=== PATIENT | female | born 1980 | race Caucasian/White ===

== ENCOUNTER → 2017-01-22 | Outpatient (REF) | payer OTHER ==
[~2017-01-22] MED LIST: /ESCI20TA PO; ABIL2TAB PO; CELE40TA PO; PARO10TA10 PO; PRAZ1CAP PO; SUBO8TA PO; SUBO8TA SL; SYNT50TA PO; XANA1TAB2 PO; ZOCO20TA PO
[2017-01-22 19:31] LABS: BASO # 0.1 10^3/uL (0.0-0.2); BASO % 0.5 % (0.0-1.0); EOS # 0.2 10^3/uL (0.0-0.50); EOS % 2.1 % (0.0-3.0); IMMATURE GRANULOCYTE % 0.4 % (0-0); LYMPH % 30.2 % (24.0-44.0); MEAN CORPUSCULAR HEMOGLOBIN 29.7 pg (27.0-33.0); MEAN CORPUSCULAR HGB CONC 33.2 g/dl (32.0-36.5); MEAN CORPUSCULAR VOLUME 89.4 fl (80.0-96.0); MONO # 0.5 10^3/uL (0.0-0.8); MONO % 5.2 % (0.0-5.0); NEUTROPHILS # 6.2 10^3/uL (1.8-7.7); NEUTROPHILS % 61.6 % (36.0-66.0); PLATELET COUNT, AUTOMATED 328 10^3/uL (150-450); RED CELL DISTRIBUTION WIDTH 12.1 % (11.5-14.5); WHITE BLOOD COUNT 10.1 10^3/uL (4.0-10.0)
[2017-01-22 20:43] LABS: ALBUMIN/GLOBULIN RATIO 1.03 (1.00-1.93); ALKALINE PHOSPHATASE 98 U/L (45-117); ALT/SGPT 33 U/L (12-78); ANION GAP 5 MEQ/L (8-16); AST/SGOT 31 U/L (15-37); BILIRUBIN,TOTAL 0.3 MG/DL (0.2-1.0); BLOOD UREA NITROGEN 13 MG/DL (7-18); CALCIUM LEVEL 9.4 MG/DL (8.5-10.1); CARBON DIOXIDE LEVEL 30 MEQ/L (21-32); CHLORIDE LEVEL 102 MEQ/L (98-107); GLOMERULAR FILTRATION RATE > 60.0 (>60); GLUCOSE, FASTING 98 MG/DL (70-105); POTASSIUM SERUM 4.9 MEQ/L (3.5-5.1); SODIUM LEVEL 137 MEQ/L (136-145); TOTAL PROTEIN 7.9 GM/DL (6.4-8.2)
[2017-01-27 00:07] LABS: ALT 28 IU/L (0-40); GGT 15 IU/L (0-60); HAPTOGLOBIN 182 mg/dL (34-200); HEPATITIS C QUANTITATION 8193940 IU/mL (.); HEPATITIS C VIRUS GENOTYPE 1a (.); NECROINFLAMM GRADE A0-No activity (.); TOTAL BILIRUBIN 0.2 mg/dL (0.0-1.2)
== END ==
LOC: M SFHCPLAZ 14:06
PROVIDERS: ATTEND Internal Medicine Infectious Disease
DX: B18.2 Chronic viral hepatitis C (principal)

== ENCOUNTER → 2017-03-01 | Outpatient (REF) | payer OTHER ==
[2017-03-01 14:01] LABS: ALBUMIN 4.1 GM/DL (3.2-5.2); ALBUMIN/GLOBULIN RATIO 1.11 (1.00-1.93); BILIRUBIN,DIRECT 0.1 MG/DL (0.0-0.2); BILIRUBIN,TOTAL 0.5 MG/DL (0.2-1.0); TOTAL PROTEIN 7.8 GM/DL (6.4-8.2)
[2017-03-05 10:08] LABS: HEPATITIS C QUANTITATION 70 IU/mL (.)
== END ==
LOC: M SFHCPLAZ 12:08
PROVIDERS: ATTEND Internal Medicine Infectious Disease
DX: B18.2 Chronic viral hepatitis C (principal)

== ENCOUNTER 2017-03-26 21:05 | Emergency (ER) | payer OTHER ==
[~2017-03-26] VITALS: Ht 154.9 cm; Wt 81.8 kg
[2017-03-26] MEDS ORDERED: BUSP1TAB PO (21:39)
[2017-03-26] MEDS ORDERED: CLON0.2T PO (21:39)
[2017-03-26] MEDS ORDERED: LAMO100T PO (21:39)
[2017-03-26] MEDS ORDERED: PROZ20CA11 PO (21:39)
[2017-03-26] MEDS ORDERED: MAVY1TAB PO (21:40)
[2017-03-26] MEDS ORDERED: SUBO12MI SL (21:40)
[2017-03-27 03:11] VITALS: BP 139/76
[2017-03-27] MEDS ORDERED: AMOXICILLIN 500 MG CAP PO ONE (03:45)
[2017-03-27] MEDS ORDERED: AMOX500C PO (03:48)
== END 2017-03-27 04:20 | disposition home or self-care (01) ==
LOC: M ED 21:05
DX: J02.9 Acute pharyngitis, unspecified (principal); F41.9 Anxiety disorder, unspecified; F33.9 Major depressive disorder, recurrent, unspecified; F17.210 Nicotine dependence, cigarettes, uncomplicated

== ENCOUNTER → 2017-04-24 | Outpatient (REF) | payer OTHER ==
[2017-04-24 14:49] LABS: ALBUMIN 3.9 GM/DL (3.2-5.2); ALBUMIN/GLOBULIN RATIO 1.26 (1.00-1.93); ALKALINE PHOSPHATASE 77 U/L (45-117); ALT/SGPT 19 U/L (12-78); AST/SGOT 20 U/L (7-37); BILIRUBIN,DIRECT 0.1 MG/DL (0.0-0.2); BILIRUBIN,TOTAL 0.3 MG/DL (0.2-1.0)
[2017-04-29 00:09] LABS: HEPATITIS C QUANTITATION HCV Not Detected IU/mL (.)
== END ==
LOC: M LABDRAW1 13:17
DX: B18.2 Chronic viral hepatitis C (principal)
CPT/HCPCS: 36415

== ENCOUNTER → 2017-05-02 | Outpatient (REF) | payer OTHER ==
[2017-05-05 00:09] LABS: AMPHETAMINE SCREEN, URINE Negative ng/mL (Cutoff=1000); BARBITURATES SCREEN, URINE Negative ng/mL (Cutoff=200); BENZODIAZEPINES, URINE SCREEN Negative ng/mL (Cutoff=200); CANNABINOID SCREEN, URINE Negative ng/mL (Cutoff=20); COCAINE SCREEN, URINE Negative ng/mL (Cutoff=300); CREATININE, URINE 72.1 mg/dL (20.0-300.0); FENTANYL URINE SCREEN Negative pg/mL (Cutoff=2000); METHADONE, URINE SCREEN Negative ng/mL (Cutoff=300); OPIATE SCREEN, URINE Negative ng/mL (Cutoff=300); OXYCODONE, SCREEN, URINE Negative ng/mL (Cutoff=100); PCP SCREEN, URINE Negative ng/mL (Cutoff=25); SPECIFIC GRAVITY, URINE 1.024 (.); pH, URINE 6.6 (4.5-8.9)
== END ==
LOC: M LAB REF 05-03 12:23
DX: F19.11 Other psychoactive substance abuse, in remission (principal)
CPT/HCPCS: 80307

== ENCOUNTER → 2017-05-16 | Outpatient (REF) | payer OTHER, MEDICAID ==
[2017-05-24 08:06] LABS: AMPHETAMINE SCREEN, URINE Negative ng/mL (Cutoff=1000); BARBITURATES SCREEN, URINE Negative ng/mL (Cutoff=200); BENZODIAZEPINES, URINE SCREEN Negative ng/mL (Cutoff=200); CANNABINOID SCREEN, URINE Negative ng/mL (Cutoff=20); COCAINE SCREEN, URINE Negative ng/mL (Cutoff=300); CREATININE, URINE 154.3 mg/dL (20.0-300.0); FENTANYL URINE SCREEN Negative pg/mL (Cutoff=2000); METHADONE, URINE SCREEN Negative ng/mL (Cutoff=300); NALOXONE RESULT Positive (.); OPIATE SCREEN, URINE Negative ng/mL (Cutoff=300); OXYCODONE, SCREEN, URINE Negative ng/mL (Cutoff=100); PCP SCREEN, URINE Negative ng/mL (Cutoff=25); SPECIFIC GRAVITY, URINE 1.022 (.); URINE BUPRENORPHINE Positive (.); URINE BUPRENORPHINE Positive (Cutoff=10); URINE BUPRENORPHINE See Final Results ng/mL (Cutoff=10); URINE BUPRENORPHINE CONFIRM 842 ng/mL (Cutoff=10); URINE NORBUPRENORPHINE Positive (.); URINE NORBUPRENORPHINE CONFIRM >1000 ng/mL (Cutoff=10); pH, URINE 5.8 (4.5-8.9)
== END ==
LOC: M LAB REF 19:37
DX: F19.11 Other psychoactive substance abuse, in remission (principal)
CPT/HCPCS: 80362

== ENCOUNTER → 2017-06-06 | Outpatient (REF) | payer OTHER, MEDICAID | LOC: M LAB REF 19:21 | DX: F19.11 Other psychoactive substance abuse, in remission (principal) ==

== ENCOUNTER → 2017-06-12 | Outpatient (REF) | payer OTHER, MEDICAID | LOC: M LAB REF 17:03 | DX: F19.11 Other psychoactive substance abuse, in remission (principal) | CPT/HCPCS: 80362 ==

== ENCOUNTER → 2017-06-20 | Outpatient (REF) | payer OTHER, MEDICAID | LOC: M LAB REF 13:57 | DX: F19.11 Other psychoactive substance abuse, in remission (principal) ==

== ENCOUNTER → 2017-06-20 | Outpatient (CLI) | payer OTHER | LOC: M RAD 16:49 | DX: M54.2 Cervicalgia (principal); M47.812 Spondylosis without myelopathy or radiculopathy, cervical region | CPT/HCPCS: 72040 ==

== ENCOUNTER → 2017-07-04 | Outpatient (REF) | payer OTHER ==
[2017-07-04 17:52] LABS: ALBUMIN 3.8 GM/DL (3.2-5.2); ALBUMIN/GLOBULIN RATIO 1.15 (1.00-1.93); ALKALINE PHOSPHATASE 75 U/L (45-117); ALT/SGPT 13 U/L (12-78); ANION GAP 6 MEQ/L (8-16); AST/SGOT 15 U/L (7-37); BILIRUBIN,TOTAL 0.4 MG/DL (0.2-1.0); BLOOD UREA NITROGEN 9 MG/DL (7-18); CALCIUM LEVEL 8.7 MG/DL (8.5-10.1); CARBON DIOXIDE LEVEL 31 MEQ/L (21-32); CHLORIDE LEVEL 103 MEQ/L (98-107); CREATININE FOR GFR 0.71 MG/DL (0.55-1.30); GLOMERULAR FILTRATION RATE > 60.0 (>60); GLUCOSE, FASTING 112 MG/DL (70-100); POTASSIUM SERUM 4.3 MEQ/L (3.5-5.1); SODIUM LEVEL 140 MEQ/L (136-145); TOTAL PROTEIN 7.1 GM/DL (6.4-8.2)
[2017-07-04 18:20] LABS: BASO # 0.1 10^3/uL (0.0-0.2); BASO % 0.4 % (0.0-1.0); EOS # 0.5 10^3/uL (0.0-0.50); EOS % 4.7 % (0.0-3.0); HEMATOCRIT 40.6 % (36.0-47.0); HEMOGLOBIN 13.4 g/dl (12.0-16.0); IMMATURE GRANULOCYTE % 0.3 % (0-3.0); LYMPH # 3.6 10^3/uL (1.5-4.5); LYMPH % 31.5 % (24.0-44.0); MEAN CORPUSCULAR HEMOGLOBIN 29.7 pg (27.0-33.0); MONO # 0.7 10^3/uL (0.0-0.8); MONO % 5.9 % (0.0-5.0); NEUTROPHILS # 6.5 10^3/uL (1.8-7.7); NEUTROPHILS % 57.2 % (36.0-66.0); PLATELET COUNT, AUTOMATED 303 10^3/uL (150-450); RED BLOOD COUNT 4.51 10^6/uL (4.00-5.40); RED CELL DISTRIBUTION WIDTH 12.8 % (11.5-14.5); WHITE BLOOD COUNT 11.4 10^3/uL (4.0-10.0)
== END ==
LOC: M SFHCPLAZ 11:07
DX: B18.2 Chronic viral hepatitis C (principal)

== ENCOUNTER → 2017-07-11 | Outpatient (REF) | payer OTHER, MEDICAID | LOC: M LAB REF 11:38 | DX: F19.11 Other psychoactive substance abuse, in remission (principal) ==

== ENCOUNTER 2017-07-12 15:54 | Emergency (ER) | payer OTHER, MEDICAID | END 2017-07-12 19:41 | disposition home or self-care (01) | LOC: M ED 15:54 | DX: M50.20 Other cervical disc displacement, unspecified cervical region (principal); R42 Dizziness and giddiness; V43.52XA Car driver injured in collision with other type car in traffic accident, initial encounter; Y92.410 Unspecified street and highway as the place of occurrence of the external cause | CPT/HCPCS: 70450 ==

== ENCOUNTER → 2017-07-19 | Outpatient (REF) | payer OTHER, MEDICAID | LOC: M LAB REF 17:13 | DX: F19.11 Other psychoactive substance abuse, in remission (principal) ==

== ENCOUNTER → 2017-08-08 | Outpatient (REF) | payer OTHER, MEDICAID | LOC: M LAB REF 11:20 | DX: F19.11 Other psychoactive substance abuse, in remission (principal) | CPT/HCPCS: 80362 ==

== ENCOUNTER → 2017-08-22 | Outpatient (REF) | payer OTHER, MEDICAID | LOC: M LAB REF 17:36 | DX: F19.11 Other psychoactive substance abuse, in remission (principal) ==

== ENCOUNTER 2017-08-28 13:55 | Outpatient (RCR) | payer OTHER | END 2017-09-20 | LOC: M PT 13:55 | DX: Z51.89 Encounter for other specified aftercare (principal); M54.2 Cervicalgia | CPT/HCPCS: 97010 ==

== ENCOUNTER → 2017-09-12 | Outpatient (REF) | payer OTHER, MEDICAID ==
[2017-09-21 03:02] LABS: AMPHETAMINE SCREEN, URINE Negative ng/mL (Cutoff=1000); BARBITURATES SCREEN, URINE Negative ng/mL (Cutoff=200); BENZODIAZEPINES, URINE SCREEN Negative ng/mL (Cutoff=200); CANNABINOID SCREEN, URINE Negative ng/mL (Cutoff=20); COCAINE SCREEN, URINE Negative ng/mL (Cutoff=300); FENTANYL URINE SCREEN Negative pg/mL (Cutoff=2000); METHADONE, URINE SCREEN Negative ng/mL (Cutoff=300); NALOXONE RESULT Positive (.); OPIATE SCREEN, URINE Negative ng/mL (Cutoff=300); OXYCODONE, SCREEN, URINE Negative ng/mL (Cutoff=100); PCP SCREEN, URINE Negative ng/mL (Cutoff=25); SPECIFIC GRAVITY, URINE 1.026 (.); URINE BUPRENORPHINE Positive (.); URINE BUPRENORPHINE Positive (Cutoff=10); URINE BUPRENORPHINE See Final Results ng/mL (Cutoff=10); URINE BUPRENORPHINE CONFIRM 1062 ng/mL (Cutoff=10); URINE NORBUPRENORPHINE Positive (.); URINE NORBUPRENORPHINE CONFIRM >1000 ng/mL (Cutoff=10); pH, URINE 6.2 (4.5-8.9)
== END ==
LOC: M LAB REF 09:18
DX: F19.11 Other psychoactive substance abuse, in remission (principal)

== ENCOUNTER 2017-09-25 13:11 | Outpatient (RCR) | payer OTHER | END 2017-10-20 | LOC: M PT 13:11 | DX: Z51.89 Encounter for other specified aftercare (principal); M54.2 Cervicalgia | CPT/HCPCS: 97010 ==

== ENCOUNTER 2017-11-07 13:47 | Outpatient (RCR) | payer OTHER | END 2017-11-20 | LOC: M PT 13:47 | DX: Z51.89 Encounter for other specified aftercare (principal); M54.2 Cervicalgia | CPT/HCPCS: 97010 ==

== ENCOUNTER 2017-11-22 13:50 | Outpatient (RCR) | payer OTHER | END 2017-12-21 | LOC: M PT 12-04 15:06 | DX: Z51.89 Encounter for other specified aftercare (principal); M54.2 Cervicalgia | CPT/HCPCS: 97010 ==

== ENCOUNTER 2017-12-27 13:08 | Outpatient (RCR) | payer OTHER | END 2018-01-20 | LOC: M PT 13:08 | DX: Z51.89 Encounter for other specified aftercare (principal); M54.2 Cervicalgia | CPT/HCPCS: 97010 ==

== ENCOUNTER → 2018-06-26 | Outpatient (REF) | payer OTHER ==
[~2018-06-26] MED LIST changes: +AMOX500C PO; +BUSP15TA47; +BUSP1TAB PO; +CLON0.2T PO; +CLON0.3T; +CYCL10TA PO; +FLUOXETINE; +LAMO100T PO; +MAVY1TAB PO; +PROZ20CA11 PO; +SUBO12MI SL; +SUBO8MIS
[2018-06-26 21:01] LABS: ALT/SGPT 28 U/L (12-78); BILIRUBIN,TOTAL 0.4 MG/DL (0.2-1.0); BLOOD UREA NITROGEN 15 MG/DL (7-18); CALCIUM LEVEL 8.4 MG/DL (8.5-10.1); CARBON DIOXIDE LEVEL 27 MEQ/L (21-32); CHLORIDE LEVEL 105 MEQ/L (98-107); CREATININE FOR GFR 0.69 MG/DL (0.55-1.30); GLOMERULAR FILTRATION RATE > 60.0 (>60); GLUCOSE, FASTING 99 MG/DL (70-100); POTASSIUM SERUM 3.7 MEQ/L (3.5-5.1); SODIUM LEVEL 140 MEQ/L (136-145); TOTAL PROTEIN 7.1 GM/DL (6.4-8.2)
[2018-06-26 21:21] LABS: HIV 1&2 SCREEN CENTAUR NEGATIVE (NEGATIVE)
== END ==
LOC: M LAB REF 18:33
PROVIDERS: ATTEND Nurse Practitioner Adult Health
DX: F11.21 Opioid dependence, in remission (principal)

== ENCOUNTER 2020-04-10 12:09 | Emergency (ER) | payer OTHER ==
[~2020-04-10 12:09] MED LIST changes: -/ESCI20TA PO; +CYCL-707 PO; -CYCL10TA PO; -LAMO100T PO; +LAMO100T3 PO; +LEXA1TAB2 PO
[2020-04-10] MEDS ORDERED: OLANZapine ORAL DISINTEGRATING TAB 5MG PO ONE (13:00)
[2020-04-10 13:36] LABS: HEMATOCRIT 32.5 % (36.0-47.0); HEMOGLOBIN 10.3 g/dl (12.0-15.5); MEAN CORPUSCULAR HEMOGLOBIN 26.4 pg (27.0-33.0); MEAN CORPUSCULAR HGB CONC 31.7 g/dl (32.0-36.5); MEAN CORPUSCULAR VOLUME 83.3 fl (80.0-96.0); PLATELET COUNT, AUTOMATED 370 10^3/uL (150-450); WHITE BLOOD COUNT 10.5 10^3/uL (4.0-10.0)
[2020-04-10 13:57] LABS: ACETAMINOPHEN LEVEL < 2.0 UG/ML (10.0-30.0); ALBUMIN 3.8 GM/DL (3.2-5.2); ALT/SGPT 31 U/L (12-78); BILIRUBIN,DIRECT < 0.1 MG/DL (0.0-0.2); BILIRUBIN,TOTAL 0.2 MG/DL (0.2-1.0); BLOOD UREA NITROGEN 12 MG/DL (7-18); CALCIUM LEVEL 8.3 MG/DL (8.5-10.1); CARBON DIOXIDE LEVEL 29 MEQ/L (21-32); CHLORIDE LEVEL 103 MEQ/L (98-107); CREATININE FOR GFR 0.76 MG/DL (0.55-1.30); ETHYL ALCOHOL (ETHANOL) 0.003 % (0.000-0.010); GLOMERULAR FILTRATION RATE > 60.0 (>60); GLUCOSE, FASTING 87 MG/DL (70-100); POTASSIUM SERUM 4.1 MEQ/L (3.5-5.1); SALICYLATE LEVEL < 1.7 MG/DL (5.0-30.0); SODIUM LEVEL 138 MEQ/L (136-145); TOTAL PROTEIN 7.7 GM/DL (6.4-8.2)
[2020-04-10 14:47] LABS: HCG, SERUM QUALITATIVE NEGATIVE (NEGATIVE)
[2020-04-10] MEDS ORDERED: LORazepam 2 MG TAB PO STA (15:03)
[2020-04-10 16:27] LABS: AMPHETAMINES LEVEL URINE NEGATIVE (NEGATIVE); BARBITURATES URINE NEGATIVE (NEGATIVE); BENZODIAZEPINES URINE NEGATIVE (NEGATIVE); CANNABINOIDS URINE NEGATIVE (NEGATIVE); COCAINE METABOLITE URINE NEGATIVE (NEGATIVE); METHADONE URINE NEGATIVE (NEGATIVE); OPIATES URINE NEGATIVE (NEGATIVE); PHENCYCLIDINE URINE NEGATIVE (NEGATIVE)
[2020-04-10] MEDS ORDERED: ACETAMINOPHEN TAB 650MG DOSE (2X325MG) PO ONE (22:45)
[2020-04-11 03:09] LABS: APPEARANCE, URINE CLEAR (CLEAR); BACTERIA, URINE AUTO NEGATIVE (NEGATIVE); BILIRUBIN, URINE AUTO NEGATIVE (NEGATIVE); BLOOD, URINE BLOOD 1+ (NEGATIVE); COLOR, URINE YELLOW (YELLOW); GLUCOSE, URINE (UA) AUTO NEGATIVE (NEGATIVE); KETONE, URINE AUTO NEGATIVE (NEGATIVE); LEUKOCYTE ESTERASE, URINE AUTO TRACE (NEGATIVE); MUCUS, URINE SMALL (NEGATIVE); NITRITE, URINE AUTO NEGATIVE (NEGATIVE); PROTEIN, URINE AUTO NEGATIVE (NEGATIVE); RBC, URINE AUTO 2 /HPF (0-3); SPECIFIC GRAVITY URINE AUTO 1.011 (1.002-1.035); SQUAMOUS EPITHELIAL CELL UR AU 7 /HPF (0-6); UROBILINOGEN, URINE AUTO 0.2 mg/dL (0.0-2.0); WBC, URINE AUTO 1 /HPF (0-3)
[2020-04-11 03:29] LABS: AMPHETAMINES LEVEL URINE POSITIVE (NEGATIVE); BARBITURATES URINE NEGATIVE (NEGATIVE); BENZODIAZEPINES URINE NEGATIVE (NEGATIVE); CANNABINOIDS URINE POSITIVE (NEGATIVE); COCAINE METABOLITE URINE NEGATIVE (NEGATIVE); METHADONE URINE NEGATIVE (NEGATIVE); OPIATES URINE NEGATIVE (NEGATIVE); PHENCYCLIDINE URINE NEGATIVE (NEGATIVE)
[2020-04-11] MEDS ORDERED: METAL LOCK LOOP XX ONE (04:31)
--- NOTE | 2020-04-11 12:28 | ECGEPIP ---
[facility] - ED Test Date: 2020-04-11 Pat Name: RIGOBERTO KNIGHT Department: Room: - Gender: Female Sock Turner: meredith : 1980 Requested By: FERMIN Marie Order Number: [id number] Reading MD: Edda Tyson Measurements Intervals [place] Rate: 67 P: 7 WV: 154 QRS: 52 QRSD: 85 T: 44 QT: 385 QTc: 409 Interpretive Statements SINUS RHYTHM No prior Electronically Signed on 04-11-2020 12:28:30 EST by Edda Tyson
[2020-04-11 13:46] LABS: RSV AMPLIFICATION NEGATIVE (NEGATIVE)
[2020-04-11 19:37] VITALS: BP 134/61
== END 2020-04-11 19:39 ==
LOC: M ED 12:09
DX: R45.851 Suicidal ideations (principal); F33.9 Major depressive disorder, recurrent, unspecified; F15.129 Other stimulant abuse with intoxication, unspecified; F41.9 Anxiety disorder, unspecified; B19.20 Unspecified viral hepatitis C without hepatic coma; Z79.899 Other long term (current) drug therapy; F17.210 Nicotine dependence, cigarettes, uncomplicated
CPT/HCPCS: 36415; 80048; 80076; 80307; 81001; 84443; 84703; 85027; 87631; 93005; 99285; G0480

== ENCOUNTER 2020-08-10 00:04 | Emergency (ER) | payer OTHER ==
[~2020-08-10] VITALS: Ht 157.5 cm; Wt 50.3 kg
[2020-08-10 00:05] VITALS: BP 150/93
== END 2020-08-10 00:38 | disposition left against medical advice (07) ==
LOC: M ED 00:04
DX: Z53.21 Procedure and treatment not carried out due to patient leaving prior to being seen by health care provider (principal)

== ENCOUNTER 2020-11-25 07:19 | Emergency (ER) | payer OTHER ==
[~2020-11-25] VITALS: Ht 157.5 cm; Wt 53.5 kg
[2020-11-25] MEDS ORDERED: BUPR1FIL (07:26)
[2020-11-25] MEDS ORDERED: DOXY-443 PO (11:23)
[2020-11-25] MEDS ORDERED: NEOM10DR2 OT (11:23)
[2020-11-25 11:27] VITALS: BP 147/75
== END 2020-11-25 11:33 | disposition home or self-care (01) ==
LOC: M ED 07:19
DX: H60.91 Unspecified otitis externa, right ear (principal); L73.9 Follicular disorder, unspecified; F15.10 Other stimulant abuse, uncomplicated; Z98.84 Bariatric surgery status; Z79.899 Other long term (current) drug therapy; F17.210 Nicotine dependence, cigarettes, uncomplicated

== ENCOUNTER 2021-01-29 00:07 | Emergency (ER) | payer OTHER ==
[~2021-01-29] VITALS: Ht 154.9 cm; Wt 51.5 kg
[2021-01-29 00:07] VITALS: BP 140/89
[~2021-01-29 00:07] MED LIST changes: +BUPR1FIL; +DOXY1CAP62 PO; +NEOM10DR2 OT
== END 2021-01-29 00:27 | disposition left against medical advice (07) ==
LOC: M ED 00:07
DX: Z53.29 Procedure and treatment not carried out because of patient's decision for other reasons (principal)

== ENCOUNTER 2021-02-02 19:20 | Emergency (ER) | payer OTHER ==
[~2021-02-02] VITALS: Ht 154.9 cm; Wt 54.5 kg
--- OUTSIDE RECORDS SUMMARY | 2021-02-02 19:31 | CCD ---
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 CESSATION* Smoking is dangerous to your health. It delays the healing process, andworks against your medications. Not smoking will improve your health* Our hospital participates with the Opt-to-Quit program. You will be contactedafter discharge by the [facility] Smoker's Quitline for support with tobaccocessation. You have the option once contacted to refuse this service.* You can also go online to www.[employer]. Free nicotine replacementsare available ___Attention* You should contact your follow up Physician as it is important that you lethim or her check you and report any new or remaining problems. If yourcondition worsens, follow up with your provider or visit our EmergencyDepartment. If you received pain medication, anxiety medications, musclerelaxants, or any medication that causes drowsiness, you cannot operatemachinery, power tools, or drive.Safe ActSafe Act Completed NoiStopiStop completed NoEND ENDDICT: 04/05/20918 Electronically SignedTRANS:04/05/20918 MORRO HARDY MDTRANS BY:DATE SIGNED:04/05/20TIME SIGNED: 0920REPORT COPY TO: Name Value Range Interpretation Code Description Data Nuha rce(s) Supporting Document(s) ID Date Data Source [id number] 04/03/2020 11:24:00 AM [facility] [place], [place] [address]IOQUMX HEALTH PROGRESS NOTEPATIENT NAME: RIGOBERTO ATKINS PHYSICIAN: MORRO HARDY, MDAUTHOR: Mona MURPHY,DhruvA. DATE: 03/31/20 MR#: [id number] NOTE DATE: 04/03/20 RM#: [id number] TIME: 1126 female, past psych history of polysubstance abuseCC/Hx Present IllnessDisorganized behaviorEvents Since Last EntryDuring this course of assessment, patient refused to come for evaluation,patient was seen in the day room, she was laying down on a sofa bed, expressedthat she has been withdrawing from Suboxone as she was taking it significantamount outside and her body has been aching and she feels very overwhelmed aswell. She was also asking for some withdrawals medication as well. Deniedhaving any current suicidal, homicidal ideation and expressed to maintain hersafety.Mental status examination: Patient was alert, oriented with a place, person,appeared distracted, somewhat overwhelmed, her speech remained somewhatpressured rapid, mood was anxious, affect was elevated, thought process wassomewhat circumstantial, thought content denied having any suicidal, homicidalideations, denied having any auditory visual hallucinations, denied delusions,attention concentration poor, insight and judgment appeared limitedDiagnosis: Psychosis unspecified, substance-induced psychotic disorderPlan: Consider to continue current treatment plan, we added Flexeril as well asclonidine medication to help with opioid withdrawals at this point as well.Also recommended substance use treatment for down the road as well. No othermedical issues reported.ObjectiveVital SignsVital Signs-LastResult Date Ti meTemp 97.7 04/03 0740Pulse Ox 99 04/02 1100B/P 114/79 04/02 1100Pulse 93 04/02 1100Resp 18 12/11 1100Current MedicationsCyclobenzaprine HCl (Flexeril) 5 MG TIDPRN PRN PO (UNVr)Clonidine (Catapres) 0.1 MG BID PO (UNVr)Citalopram Hydrobromide (Celexa) 20 MG QHS POMiscellaneous (Patch off) 1 PAT QHS NATrimethoprim/Sulfamethoxazole (Septra DS) 1 TAB BID PONicotine (Nicoderm) 21 MG DAILY TOPMiscellaneous Read DDIC66P NAAcetaminophen (Tylenol) 650 MG Q4HPRN PRN POAcetaminophen (Tylenol) 650 MG Q4HPRN PRN POAl Hydrox/Mg Hydrox/Simethicone (Maalox) 15 ML QIDPRN PRN POHydroxyzine (Atarax) 50 MG Q4HPRN PRN POMagnesium Hydroxide (Mom) 10 ML QHSPRN PRN POTrazodone HCl (Desyrel) 50 MG QHSPRN PRN POAssessment/PlanDiagnosis1. PsychosisCoordination of care provided with nursing staff, treatment teamRisk/benefits discussed side effectsJustification for continued stay danger to self/othersDATE SIGNED: 04/03/20 Electronically SignedTIME SIGNED: 1126 LYRIC BANKS MD Name Value Range Interpretation Code Description Data Nuha rce(s) Supporting Document(s) ID Date Data Source [id number] 04/03/2020 12:14:00 AM [place], [place] [address]PATIENT NAME: RIGOBERTO ATKINS#: [id number] PHYSICIAN: MORRO HARDY MD ADM. DATE: 03/31/20PROGRESS NOTE DATE: 04/02/20 RM.#: [id number] #: [id number] NOTEIDENTIFICATION: A 39-year-old female with schizoaffective disorder andpolysubstance dependence.VITAL SIGNS: Temperature of 98.2, pulse of 93, respirations 15, bloodpressure 126/89.LABORATORY DATA: Hepatitis C positive. The patient stated that she had thisdiagnosis for the last 3 years.SUBJECTIVE: The patient came to the interview room. She cannot explain whyyesterday she did not come to talk to us, why she was so upset. The patientstated that she does not want to stay here in the hospital, but she cannotexplain the real situation outside. The patient cannot explain what she wasdoing in the middle of the field at the time of admission. She stated that shewas thinking about life, but she cannot explain what she meant by that.MENTAL STATUS EXAMINATION: The patient is confused, but improved fromyesterday. Denies any suicidal or homicidal ideations, but she cannot takecare of herself. Judgment and insight are questionable. Reality testing iscompromised. Decision making capacity is compromised.DIAGNOSES: Schizoaffective disorder.PLAN: At this point, the patient will be back on the Celexa that will beincreased slowly in the next few days. The use of neuroleptic is halted forthe time being suspicious that this is related to the use of substance that isstill present. We will also keep an eye on the withdrawals.Date Dictated: 04/02/2020 10:20:11Date Transcribed: 04/02/2020 23:14:23JV/GBJob #: [id number]: 04/02/20 1020 Electronically SignedTRANS:04/03/20 0014 MORRO HARDY MDTRANS BY:COLLETTE SIGNED:04/05/20REPORT COPY TO: Name Value Range Interpretation Code Description Data Nuha rce(s) Supporting Document(s) ID Date Data Source [id number] 04/01/2020 11:34:[address] [id number] NAME: RIGOBERTO ATKINS#: [id number] PHYSICIAN: MORRO HARDY MD ADM. DATE: 03/31/20PROGRESS NOTE DATE: 04/01/20 .#: 316ACCOUNT #: [id number] NOTEIDENTIFICATION: A 39-year-old female with mood disorder, depression, andpolysubstance dependence.VITAL SIGNS: Temperature of 98, pulse of 87, respirations 16, blood urfywgwp275/70.SUBJECTIVE: The patient declined the interview. She is in the dining room.She seems to be disorganized, but did not want to answer any questions. It isnot clear the reason why she does not want to have the interview. The patientknows that we talked with her family that they have concern about the poorimpulse control and the use of substance. We are trying to discuss with thepatient the fact that the police found her not in the road sitting in her caras she told us yesterday, but in the middle of the field. She did not knowwhere she was. At this point, the patient does not want to answer anyquestions.MENTAL STATUS EXAMINATION: Patient is uncooperative. Declines the interview.Denies any other problems. Judgment and insight are poor. Reality testingseems to be compromised. Decision making capacity is compromised. Cognitivepart of the test unable to explore.PLAN: At this point, it is not clear the patient has just a mood disorderwith depression or psychosis. We will start an SSRI and if we have any signsof psychosis, we will add a neuroleptic, but at this point, we will start withan SSRI first.Date Dic tated: 04/01/2020 11:00:29Date Transcribed: 04/01/2020 22:34:09JV/GBJob #: [id number]: 04/01/20 1100 Electronically SignedTRANS:04/01/20 2334 MORRO HARDY MDTRANS BY:COLLETTE SIGNED:04/02/20REPORT COPY TO: Name Value Range Interpretation Code Description Data Nuha rce(s) Supporting Document(s) ID Date Data Source [id number] 04/02/2020 08:12:00 AM EST [facility] Performed at: [facility] [place] [id number] Director: Macy Valdes MD, Phone: [phone] at: [facility] [place] [id number] Director: Macy Valdes MD, Phone: [phone] at: [facility] [place], [place] [id number] Director: Macy Valdes MD, Phone: [phone] Name Value Range Interpretation Code Description Data Nuha rce(s) Supporting Document(s) HIV 4TH GEN. Non Reactive Non Reactive N [facility] pital ID Date Data Source [id number] 04/02/2020 08:11:00 AM EST [facility] Performed at: [facility] LabCo[address] [id number] Director: Macy Valdes MD, Phone: [phone] at: [address] [id number] Director: Macy Valdes MD, Phone: [phone] at: [address] [id number] Director: Macy Valdes MD, Phone: [phone] Name Value Range Interpretation Code Description Data Nuha rce(s) Supporting Document(s) COMMENT: Comment . [facility] Strong reactive antibody screen (s/c rat io >10.9) isconsistent with past or present HCV infection. Follow-uptesting by HCV, Quantitative, Real time PCR (#[id number]) isrecommended to determine viral load/diagnosis of currentHCV infection.Effective May 10, 2020 HCV Ab w/Rflx to Verification will be made non-orderable. [facility] offers order code [id number] HCV Antibody reflex to EZRA. HCV AB >11.0 0.0-0.9 [facility] INFCE Result Units: s/co ratio ID Date Data Source [id number] 04/01/2020 03:02:00 PM EST [facility] Name Value Range Interpretation Code Description Data Nuha rce(s) Supporting Document(s) HEP C Reactive-Prelimin. Nonreactive [facility] ospital The test result is interpreted as PRELIM INARY POSITIVE forHepatitis C antibodies.*Confirmatory testing will followConfirmatory results must be considered in making adiagnosis related to HCV infection* ID Date Data Source [id number] 03/31/2020 03:58:00 PM EST [facility] Exam Number: [id number] OF EXAMINATIO N: 03/31/2020 14:46 ESTTECHNIQUE: 4 views of the left hand were obtained.HISTORY: PainFINDINGS:No evidence of acute fracture or dislocation. Alignment is normal..Alignment is normal. No aggressive osseous lesions or erosions. Bonemineral density is unremarkable. Visualized soft tissues are normal.IMPRESSION:No evidence of acute fracture or dislocation.Electronically signed in PS360 by: Nick Oro M.D. 03/31/202015:31 EST Reported By: Yara ORO M.D. Signed By: Alejandro ORO M.D. Name Value Range Interpretation Code Description Data Nuha rce(s) Supporting Document(s) ID Date Data Source [id number] 03/31/2020 03:43:00 PM EST [facility] Exam Number: [id number] OF EXAMINATION : 03/31/2020 14:46 ESTTECHNIQUE: 3 views of the right hand were obtained.HISTORY: Pain. We are unable to complete the study. Patient wasmedicated.FINDINGS:No evidence of acute fracture or dislocation. Alignment is normal..Alignment is normal. No aggressive osseous lesions or erosions. Bonemineral density is unremarkable. Visualized soft tissues are normal.IMPRESSION:No evidence of acute fracture or dislocation.Electronically signed in PS360 by: Nick Oro M.D. 03/31/202015:31 EST Reported By: Yara ORO M.D. Signed By: Alejandro ORO M.D. Name Value Range Interpretation Code Description Data Nuha rce(s) Supporting Document(s) ID Date Data Source [id number] 03/31/2020 03:32:00 PM EST [facility] Exam Number: [id number] OF EXAMINATIO N: 03/31/2020 14:46 ESTU/S VENOUS DOPP ARM/LEG BILATHISTORY: Hand swellingRIGHT upper EXTREMITY VENOUS DOPPLERDuplex scan was performed using B-mode/nguyen scale imaging and Dopplerspectral analysis and color flow.There is no evidence for deep or superficial venous thrombosis nor anyfluid collections.IMPRESSION:Negative study for deep venous thrombosis in the right upperextremity.LEFT UPPER EXTREMITY VENOUS DOPPLERDuplex scan was performed using B-mode/nguyen scale imaging and Dopplerspectral analysis and color flow.There is no evidence for deep or superficial venous thrombosis nor anyfluid collections.IMPRESSION:Negative study for deep venous thrombosis in the left upper extremity.Electronically signed in PS360 by: Nick Oro M.D. 03/31/202015:20 EST Reported By: Yara ORO M.D. Signed By: Alejandro ORO M.D. Name Value Range Interpretation Code Description Data Nuha rce(s) Supporting Document(s) ID Date Data Source [id number] 03/31/2020 02:36:00 PM EST [facility] [address] [address]VTWVHWF AND PHYSICALPATIENT NAME: RIGOBERTO ATKINS MR#: [id number] PHYSICIAN: MORRO HARDY MDAUTHOR: Madelyn Rosado DATE: 03/31/20 RM#: [id number] & PHYSICAL DATE: 03/31/20 : 80EVALUATION TIME: 1436See AddendumHistoryChief Complaint/Admit ReasonPsychosisHistory of Presenting IllnessPatient is a 39 yo white female admitted to inpatient psychiatry withpsychosis. Patient is a very poor historian and is trailing off during myinterview and distracted. She is unable to give me details of HPI. Nurses tellme her hands are swollen and red and the patient was apparently injecting"synthetic methamphetamine". She previously has had hepatitis C. I will requesta HIV screen for good measure with f/u as appropriate. She had reported UTI sxto the nursing staff as well but initial culture shows no growth. She reportsno STI history but is unable/unwilling to give me any information on this. ifsx continue despite ABX I would recommend a urine C+G.ROS- difficult to obtain due to mental status.Past Medical/Surgical HistoryPast Medical/Surgical HistoryMedical ProblemsCellulitisDysuriaHand swellingHepatitis COpioid abuseSurgical ProblemsGastric bypass status for obesitySocial History ProblemsIV drug abuseAdditional NotesPSH- ReYReconciled Home Med ListSee Reconciled Home Medication ListAllergiesCoded Allergies:No Known Drug Allergies (12/09/20)Family history Unable to state after questioning.Social History alcohol use, recreational drug use, smokerExamVital SignsVital Signs-24 HRS03/31 1327Temp 98.2 97.4Pulse 87 75Resp 16 14B/P 164/110 132/76B/P MeanPulse Ox 100O2 DeliveryO2 Flow FtccXeN8Fhikkzdb ExaminationGeneral Appearance no acute distress, drowsyHead atraumaticENT moist mucosal membranes, poor dentitionNeck no lymphadenopathyCardiovascular regular rate, no murmurRespiratory clear to auscultation, no distressAbdomen softMuscoskeletal full range of motion, normal inspectionNeurological no motor deficits, no sensory deficits, drowsy, sedated.Skin AssessmentSkin dry, warm, tattoos, hands B/L eythema, mild- mod, no sig tenderness,warmth. swelling. no subq air, no drainage.Lymphatic no lymphadenopathyPsych/Mental Status acute psychosis, drowsyData ReviewLaboratory DataRecent Labs-48 hours03/30 2222ChemistrySodium (136 - 147 mmol/L) 141Potassium (3.5 - 5.1 mmol/L) 4.2Chloride (99 - 110 mmol/L) 109Serum Bicarbonate (20 - 33 mmol/L) 30Anion Gap (10.0 - 20.0) 6.2 LBUN (7 - 23 mg/dL) 12Creatinine (0.500 - 1.300 mg/dL) 0.645Estimated GFR/1.73 m2 (mL/min) > 60Glucose (70 - 110 mg/dL) 84Calcium (8.3 - 10.7 mg/dL) 8.8Total Bilirubin (0.1 - 1.1 mg/dL) 0.4AST (6 - 38 U/L) 42 HALT (6 - 54 U/L) 28Alkaline Phosphatase (45 - 117 U/L) 85Total Protein (6.0 - 7.8 g/dL) 7.6Albumin (3.5 - 5.0 g/dL) 3.7Globulin (2.3 - 3.5 g/dL) 3.9 HAlbumin/Globulin Ratio (1.0 - 2.5) 0.9 LHematologyWBC (4.0 - 10.5 x10E3/uL) 9.45RBC (4.20 - 5.40 x10E6/uL) 3.97 LHgb (12.0 - 16.0 g/dL) 10.6 LHct (37.0 - 47.0 %) 32.2 LMCV (81.0 - 99.0 fL) 81.1MCH (27.0 - 31.0 pg) 26.7 LMCHC (32.7 - 35.6 g/dL) 32.9RDW (11.5 - 14.0 %) 14.3 HPlt Count (150 - 450 x10E3/uL) 369MPV (6.9 - 9.5 fl) 9.7 HNucleated RBC % (auto) (0 %) 0Seg Neuts % (Manual) (34 - 64 %) 47Band Neutrophils % (5 - 11 %) 3 LLymphocytes % (Manual) (25 - 45 %) 37Monocytes % (Manual) (2 - 10 %) 12 HEosinophils % (Manual) (0 - 7 %) 1ToxicologySalicylates (0.0 - 20.0 mg/dL) < 1.7Opiates Screen (NEGATIVE) NEGMethadone Screen (NEGATIVE) NEGAcetaminophen (0 - 30 ug/mL) < 2.0Barbiturate Screen (NEGATIVE) NEGPhencyclidine Screen (NEGATIVE) NEGAmphetamines Screen (NEGATIVE) NEGBenzodiazepines (NEGATIVE) NEGCocaine Screen (NEGATIVE) NEGCannabinoids (NEGATIVE) NEGEthyl Alcohol (NONE DETECTED g/dL)UrinesUrine Color YellowUrine Appearance CloudyUrine pH (5.0 - 8.0) 6.0Ur Specific Nenzel (1.010 - 1.025) 1.032 HUrine Protein (Negative) 1+Urine Ketones (NEGATIVE) NegativeUrine Blood (NEGATIVE) NegativeUrine Nitrite (Negative) NegativeUr Bilirubin Confirm (NEGATIVE) NegativeUrine Urobilinogen (0.2 - 1.0 mg/dL) 1.0Urine Leukocytes (Negative) 1+Urine RBC (NONE SEEN) 3-5 RBCs/HPFUrine WBC (NONE SEEN) 6-10 WBCs/HPFUrine Crystals (NONE SEEN) FEW AMORPHOUSUrine Bacteria (NONE SEEN) ModerateUrine Glucose (NEGATIVE) NegativeUrine HCG, Qual (Negative) IlvuiilmPzmihkxkdzni11/08 2222 URINE,CC: Urine Culture - RESAssessment/PlanDiagnosis/Problem1. Hand swellingA&PWill get XRAY and dopplers to r/o FB and DVT. Start bactrim. Renal function WNL, reports no allergies and chart states no allergies. Nothing to culture.Encouraged to keep elevated above heart all times.2. CellulitisA&Pas above.3. Hepatitis CA&PF/U outpt4. Opioid abuseA&Billy suboxone can be continued from home at behest of psychiatry.5. DysuriaA&PUrine culture thus far neg. Would get urine C+G if sx persist. Nursing can callme for orders regarding this.Additional NotesPatient is medically stable at this time for inpatient psychiatric care. I willstart ABX for hand cellulitis B/L 2/2 injections get U/S and xray. She has nohistory of lupus, RA, gout, or any other clear cause of B/L hand swelling butdoes report injections of synthetic meth.Total time spent 30mResuscitation status Full codePlan discussed with patientCase discussed with dependency case manager, nursing staffCopies ToCopies to Family Provider: PCP on file.CQM VTE HISTORYVTE HISTORYPrior VTE? NoADDENDUM: Madelyn Rosado on 03/31/20 at 1453Her hepatitis C may be a causative factory in her hand swelling as well i willget a viral load.ADDENDUM: Madelyn Rosado on 03/31/20 at 1620R Hand xray IMPRESSION:No evidence of acute fracture or dislocation.Electronically signed in PS360 by: Nick Oro M.D. 03/31/202015:31 EST Reported By: Alejandro ORO M.D.XAM# TYPE/EXAM [id number] DX/HAND COMPLETEDATE OF EXAMINATION: 03/31/2020 14:46 ESTTECHNIQUE: 4 views of the left hand were obtained.HISTORY: PainFINDINGS:No evidence of acute fracture or dislocation. Alignment is normal..Alignment is normal. No aggressive osseous lesions or erosions. Bonemineral density is unremarkable. Visualized soft tissues are normal.IMPRESSION:No evidence of acute fracture or dislocation.Electronically signed in PS360 by: Nick Oro M.D. 03/31/202015:31 EST Reported By: Alejandro ORO M.D.EXAM# TYPE/EXAM [id number] US/U/S VENOUS DOPP ARM/LEG BILADATE OF EXAMINATION: 03/31/2020 14:46 ESTU/S VENOUS DOPP ARM/LEG BILATHISTORY: Hand swellingRIGHT upper EXTREMITY VENOUS DOPPLERDuplex scan was performed using B-mode/nguyen scale imaging and Dopplerspectral analysis and color flow.There is no evidence for deep or superficial venous thrombosis nor anyfluid collections.IMPRESSION:Negative study for deep venous thrombosis in the right upperextremity.LEFT UPPER EXTREMITY VENOUS DOPPLERDuplex scan was perform ed using B-mode/nguyen scale imaging and Dopplerspectral analysis and color flow.There is no evidence for deep or superficial venous thrombosis nor anyfluid collections.IMPRESSION:Negative study for deep venous thrombosis in the left upper extremity.Xrays and doppler negative. Awaiting hep C viral load. Can be followed up outptw/gastroenterology or ID. From records [place] If viral load is high she should follow up with her on D/C.Bactrim recommended for 7 days.ADDENDUM: Madelyn Rosado on 04/02/20 at 1401HIV neg. Hep C antibody + viral load was cancelled pt refused draw. Suggest f/uwith Dr. Malone in [place] on d/c.DATE SIGNED: 04/02/20 Electronically SignedTIME SIGNED: 1401 MADELYN ZULUAGA Name Value Range Interpretation Code Description Data Nuha rce(s) Supporting Document(s) ID Date Data Source [id number] 04/01/2020 01:20:00 AM EST [facility] [place] [id number] NAME: RIGOBERTO ATKINS#: [id number] PHYSICIAN: MORRO HARDY MD ADM. DATE: 03/31/20ACCOUNT #: [id number] .#: [id number] ASSESSMENTIDENTIFICATION: A 39-year-old female with mood disorder and substancedependence.CHIEF COMPLAINT: "I got lost."REASON FOR ADMISSION: Disorganization, unable to take care of herself.HISTORY OF PRESENT ILLNESS: According to the records, the patient was broughtto the Emergency by the Nurse Epidemiologist after they found in the field, trying to pushher car [TIME: 00:38] ____ run out of gas. The patient was highlydisorganized, could not explain what happened and [facility], the patient continues to have this presentationand she is disorganized with pressure in her speech, but she is cooperativeduring the interview.Today, the patient stated that she went to drop off her boyfriend on [facility] [place] for work, and coming back, she got lost, ran out ofgas. At that point, she was waiting for someone to give her gas, she foundthat AAA and after getting the gas, she was staying in the car for 6 hoursthinking about her life that is when the police got involved and they thoughtthat the patient was not doing well. The patient cannot explain why and whathappened. She stated that she was using Janna 2 days prior to this admission,but she was not using any drugs on the day of admission. The patient statedthat she normally does not think about life and she cannot stay thinking forhours on it.The patient stated that she is not suicidal or homicidal, she does notunderstand why the police brought her to the Emergency and her family is alsoconcerned about that.PAST PSYCHIATRIC HISTORY: The patient had one prior hospitalization when shewas younger for depression that was 2011, she was going through a separation.The patient denies suicidal gestures in the past. She has been seen bycounselors in the past and more related to chemical dependence.DRUGS, ALCOHOL AND TOBACCO: The patient has criteria for polysubstancedependence. She is on Suboxone. She has used Janna. She has a history ofabusing heroin. The patient stated that she used needles in the past, but notlately, but she requested hep C and HIV testing.MEDICAL HISTORY: None.ALLERGIES: NONE.FAMILY HISTORY: No mental illness in the family.HISTORY OF A[facility]SE: [facility], but we do not go into any details.SOCIAL HISTORY: [place] She described a normal growing up. She is living in her ownapartment, but the patient spent most of the time with her boyfriend. Thesupport system with the boyfriend and the mother.LABORATORY DATA: On admission, hemoglobin of 10.6, hematocrit of 32.2,platelets 369. Sodium 141, potassium 4.2, chloride 109, creatinine 0.6,glomerular filtration more than 60, glucose 84, AST 42 is slightly high, ALT28. Tox screen is negative. Urinalysis: Protein 1, leukocytes 1. Pregnancytest is negative.MENTAL STATUS EXAMINATION: The patient is pleasant, cooperative. Somedisorganization during the interview and is in the normal range. The patientdenies suicidal or homicidal ideations. Denied delusions. Judgment andinsight are questionable for her actions. Reality testing, at this pointfine, but it seems that she was a little bit off at the time of admission.Orientation to person, time and place. Mood is elevated in the normal range.Concentration is poor.DIAGNOSES: Mood disorder, not otherwise specified, rule out mood disorder dueto the use of substance.PLAN: The patient seems to be doing better now. We expect some withdrawalsin the next 48 hours. She will have a low dose of benzodiazepines. We haveto gather more information, call the family to see the safety for the patienteven though she presents well today, we have to be extra careful. The patientat this point stated that she is not depressed. We are going to focus ourattention in the disorganization, the risk of withdrawal and after that wewill look at the mood disorder. The patient does not show any signs ofpsychosis either. Denies any auditory hallucinations or commandhallucinations either and she does not have a history of suicidal gesture, sothis should be a short hospitalization.Date Dictated: 03/31/2020 10:47:58Date Transcribed: 04/01/2020 00:20:02MAXIMILIAN/Georgiana #: [id number]: 03/31/20 1047 Electronically SignedTRANS:12/10/20 0120 MORRO HARDY MDTRANS BY:COLLETTE SIGNED:04/01/20REPORT COPY TO: Name Value Range Interpretation Code Description Data Nuha rce(s) Supporting Document(s) ID Date Data Source [id number] 03/31/2020 06:53:00 AM EST Leslie Guthriei katja Name Value Range Interpretation Code Description Data Nuha rce(s) Supporting Document(s) COVID-19, EZRA NEGATIVE NEGATIVE [facility] Methodology: Nucleic Acid AmplificationN egative results should be treated as presumptive and, ifinconsistent with clinical signs and symptoms or necessaryfor patient management, should be tested with differentauthorized or cleared molecular tests. Negative results donot preclude SARS-CoV-2 infection and should not be used asthe sole basis for patient management decisions. Negativeresults should be considered in the context of a patient'srecent exposures history and the presence of clinical signsand symptoms consistent with COVID-19.The ID NOW COVID-19 test is only for use under the Food andDrug Administration's Emergency Use Authorization. ID Date Data Source [id number] 03/31/2020 12:00:00 AM EST [facility] Name Value Range Interpretation Code Description Data Nuha rce(s) Supporting Document(s) [facility]2 [facility] This lab was ordered by [facility] and reported by [facility]. ID Date Data Source [id number] 03/30/2020 11:18:00 PM EST [facility] Name Value Range Interpretation Code Description Data Nuha rce(s) Supporting Document(s) WBC 9.45 x10E3/uL 4.0-10.5 [facility] RBC 3.97 x10E6/uL 4.20-5.40 [facility] Hemoglobin 10.6 g/dL 12.0-16.0 [facility] Hematocrit 32.2 % 37.0-47.0 [facility] MCV 81.1 fL 81.0-99.0 [facility] MCH 26.7 pg 27.0-31.0 [facility] MCHC 32.9 g/dL 32.7-35.6 [facility] RDW 14.3 % 11.5-14.0 [facility] Platelet count 369 x10E3/uL 150-450 [facility] ital MPV 9.7 fl 6.9-9.5 [facility] ANRBC% 0 % 0 [facility] SEG. NEUTROPHIL 47 % 34-64 [facility] BAND 3 % 5-11 [facility] LYMPHOCYTE 37 % 25-45 [facility] EOSINOPHILS 1 % 0-7 [facility] MONOCYTES 12 % 2-10 [facility] ID Date Data Source [id number] 03/30/2020 11:02:00 PM EST [facility] Name Value Range Interpretation Code Description Data Nuha rce(s) Supporting Document(s) ACETAMINOPHEN < 2.0 ug/mL 0-30 [facility] al ID Date Data Source [id number] 03/30/2020 11:02:00 PM EST [facility] Name Value Range Interpretation Code Description Data Nuha rce(s) Supporting Document(s) SALICYLATE < 1.7 mg/dL 0.0-20.0 [facility] ID Date Data Source [id number] 03/30/2020 11:02:00 PM EST [facility] Name Value Range Interpretation Code Description Data Nuha rce(s) Supporting Document(s) ETOH NONE DETECTED [facility] NONE DETECTED ID Date Data Source [id number] 03/30/2020 11:02:00 PM EST [facility] Name Value Range Interpretation Code Description Data Nuha rce(s) Supporting Document(s) GLU 84 mg/dL 70-110 [facility] Patients taking Sulfasalazine may have f alsely depressedGlucose levels. Patients taking Sulfapyridine may havefalsely elevated Glucose levels. Patients should be drawnfor Glucose before the initial administration of eitherdrug. BUN 12 mg/dL 7-23 [facility] CRE 0.645 mg/dL 0.500-1.300 [facility] GFR > 60 mL/min [facility] CHLORIDE 109 mmol/L 99-110 [facility] NA 141 mmol/L 136-147 [facility] POTASSIUM 4.2 mmol/L 3.5-5.1 [facility] TCO2 30 mmol/L 20-33 [facility] ANION GAP 6.2 10.0-20.0 [facility] CA 8.8 mg/dL 8.3-10.7 [facility] ALKALINE PHOS 85 U/L 45-117 [facility] TP 7.6 g/dL 6.0-7.8 [facility] ALB 3.7 g/dL 3.5-5.0 [facility] ESRD Dialysis patient Albumin reference range: 2.9-4.4 g/dL GL 3.9 g/dL 2.3-3.5 [facility] A/G 0.9 1.0-2.5 [facility] T. BILIRUBIN 0.4 mg/dL 0.1-1.1 [facility] The Dimension [place] Total Bilirubin is n ot recommended forpatients undergoing treatment with eltrombopag (Promacta)due to the potential for falsely elevated results. ALTI 28 U/L 6-54 [facility] Patients taking Sulfasalazine and/or Sul fapyridine may havefalsely depressed ALT levels. Patients should be drawn forALT before the initial administration of either drug. AST 42 U/L 6-38 [facility] Patients taking Sulfasalazine and/or Sul fapyridine may havefalsely depressed AST levels. Patients should be drawn forAST before the initial administration of either drug. ID Date Data Source [id number] 03/30/2020 11:01:00 PM EST [facility] Name Value Range Interpretation Code Description Data Nuha rce(s) Supporting Document(s) PCP VISTA NEG NEGATIVE [facility] MINIMUM LEVEL OF DETECTION IS 25 ng/ml BENZODIAZEPINES NEG NEGATIVE [facility] al MINIMUM LEVEL OF DETECTION IS 200 ng/ml COCAINE VISTA NEG NEGATIVE [facility] MINIMUM LEVEL OF DETECTION IS 300 ng/ml AMPHETAMINES NEG NEGATIVE [facility] al MINIMUM LEVEL OF DETECTION IS 1000 ng/ml BARBITURATES NEG NEGATIVE [facility] al CUTOFF CONCENTRATION IS 200 ng/ml CANNABINOIDS NEG NEGATIVE [facility] al CUTOFF CONCENTRATION IS 50 ng/ml METHADONE VISTA NEG NEGATIVE [facility] al MINIMUM LEVEL OF DETECTION IS 300 ng/ml OPIATE VISTA NEG NEGATIVE [facility] MINIMUM DETECTION LEVEL IS 300 ng/ml ID Date Data Source [id number] 03/30/2020 10:49:00 PM EST [facility] Name Value Range Interpretation Code Description Data Nuha rce(s) Supporting Document(s) URINE COLOR Yellow [facility] UAPR Cloudy [facility] UGLU Negative NEGATIVE [facility] URINE BILIRUBIN Negative NEGATIVE [facility] UKET Negative NEGATIVE [facility] USG 1.032 1.010-1.025 [facility] UBLO Negative NEGATIVE [facility] UpH 6.0 5.0-8.0 [facility] UPRO 1+ Negative [facility] UUB 1.0 mg/dL 0.2-1.0 [facility] UNIT Negative Negative [facility] ULEU 1+ Negative [facility] ID Date Data Source [id number] 03/30/2020 10:49:00 PM EST [facility] Name Value Range Interpretation Code Description Data Nuha rce(s) Supporting Document(s) URINE RBC 3-5 RBCs/HPF NONE SEEN [facility] URINE WBC 6-10 WBCs/HPF NONE SEEN [facility] A URINE CULTURE HAS BEEN ADDED TO THIS [facility] URINE BACTERIA Moderate NONE SEEN [facility] l A URINE CULTURE HAS BEEN ADDED TO THIS [facility] URINE EPI. Many NONE SEEN [facility] URINE CRYSTAL FEW AMORPHOUS NONE SEEN [facility] ID Date Data Source [id number] 03/30/2020 10:49:00 PM EST [facility] Name Value Range Interpretation Code Description Data Nuha rce(s) Supporting Document(s) HCG QUAL URINE Negative Negative [facility] ID Date Data Source [id number] 04/02/2020 08:11:00 AM EST [facility] Performed at: RN - [facility] [address] [id number] Director: Macy Valdes MD, Phone: [phone] Name Value Range Interpretation Code Description Data Nuha rce(s) Supporting Document(s) HIV 4TH GEN. Non Reactive Non Reactive [facility] pital ID Date Data Source [id number] 03/31/2020 09:14:00 AM EST Leslie Jerriclyde katja Physician DocumentationClaxton-Andriy Brooks edical CenterName: Rigoberto Hernandez: 39 yrsSex: FemaleDOB: 1980MRN: [id number] Date: 03/30/2020Time: 22:02Account#: [id number] MD:ED Physician Shalonda Alexander Summary:03/31/20 05:07Hospitalization OrderedHospitalization Status: Inpatient Admission fc7Brdmpxcf: HardyJoel saavedravier ap0Tnxvplxe: Mental Health Unit fz1Nxvkpwzdi: Unchanged dh9Doqrgwp: an ongoing problem xj9Vaugpelc: are unchanged lt4Dsxk Assignment: oc1Ubhfreacw- 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 uk7Sjbit:- Medication Reconciliation dk2- SBAR dk2- Medication Reconciliation Form - 2nd Copy dk2HPI:03/900:02 This 39 yrs old White Female presents to ER via Police with jz5orwgvavirt of Psych Problem.00:02 Patient brought in for psychiatric evaluation. Patient has no current ny2hajmqplatt. Patient denies any current suicidal or homicidalideation. She states she has had suicidal thoughts in the past butnot currently. She denies hearing voices. She denies any physicalcomplaints besides chronic neck pain for which she takes Tylenol. Shedenies any constitutional sick symptoms. She does not wish to speakany further with me about why she is here.Historical:- Allergies: No known Allergies;- Home Meds:1. Suboxone 8-2 mg sublingual film- PMHx: None;- PSHx: gastric bypass; hand surgery;- Immunization history: Flu vaccine is not up to date.- Social history: Smoking status: Patient uses tobacco products,current ev neris day smoker. Patient uses street drugs, somethingsynthetic, ETOH status Denies use of ETOH.- Advance Directives:: None.ROS:00:05 Constitutional: Negative for chills, fever. Eyes: Negative for gq5gbvlzcocb, vision loss. ENT: Negative for difficulty swallowing,difficulty handling secretions. Neck: Negative for stiffness, bonytenderness, acute changes. Cardiovascular: Negative for chest pain,palpitations. Respiratory: Negative for cough, shortness of breath.Abdomen/GI: Negative for abdominal pain, nausea, vomiting, diarrhea.Back: Negative for decreased range of motion, acute changes.MS/extremity: Negative for decreased range of motion, swelling. Skin:Negative for hematoma, jaundice. Neuro: Negative for headache, lossof consciousness, seizure activity, syncope. Psych: Negative forhomicidal ideation, acute changes.Exam:00:07 Constitutional: The patient appears in no acute distress, alert, lp6lcdyi, comfortable, non-diaphoretic, non-toxic, well developed.00:07 Head/face: Exam is negative for contusion, deformity.00:07 Eyes: Exam is negative for drainage, abnormalities of symmetry, size,shape and reaction of the pupils.00:07 ENT: Exam is negative for epistaxis, abnormal voice.00:07 Neck: Exam negative for meningismus, nuchal rigidity.00:07 Chest/axilla: Exam negative for crepitus, flail chest.00:07 Cardiovascular: Exam negative for JVD, tachycardia.00:07 Respiratory: Exam negative for respiratory distress, stridor,tachypnea.00:07 Abdomen/GI: Exam negative for distension, guarding.00:07 Back: Exam negative for CVA tenderness, vertebral tenderness.00:07 Musculoskeletal/extremity: Exam is negative for open injury, pelvicinstability.00:07 Skin: Exam negative for cyanosis, pallor.00:07 Neuro: Exam negative for focal neuro deficits, confusion, dysarthria.00:07 Psych: Behavior/mood is pleasant, cooperative, Affect is animated,Oriented to person, Denies SI and HI to me.Vital Signs:03/822:08 BP 164 / 110; Pulse 87; Resp 16; Temp 98.2; Pulse Ox 100% ; Weight kk254.5 kg; Height 5 ft. 2 in. (157.48 cm);03/909:09 BP 129 / 88; Pulse 71; Resp 14; Temp 98.2; Pulse Ox 95% ; Pain 0/10; wd112/0822:08 Body Mass Index 21.98 (54.50 kg, 157.48 cm) ok7Xvqpdai Coma Score:00:07 Eye Response: spontaneous(4). Verbal Response: oriented(5). Motor gi0Fsomtubr: obeys commands(6). Total: 15.MDM:03/822:10 Patient medically screened. dk:47 Data reviewed: nurses notes. ED course: Patient presented for od4jynljsootfa evaluation, medically cleared and evaluated by psychiatryfor likely admission. Patient became agitated during her time hereand began pacing, but was redirectable and actually was able to getback into bed and sleep. Her boyfriend called during this time andmentioned that he was concerned for the patient because she had takenhis car and it was parked in the middle of nowhere and he has no ideahow or why this happened. Psychiatry evaluates the patient and shewill be set to be admitted but currently no available beds in thehospital so will be boarded in the emergency department..05:08 ED course: Accepted by psychiatry for admission for diagnosis of vg5rnkxmhzdz disorder per Dr. Hardy on 39 status.03/822:12 Order name: Acetaminophen Level; Complete Time: 00::12 Order name: CBC with diff; Complete Time: 00::12 Order name: CMP; Complete Time: 00::12 Order name: ETOH; Complete Time: 00::12 Order name: Glucose :12 Order name: Salicylate Level; Complete Time: 00::12 Order name: Triage - Drug Screen; Complete Time: 00::12 Order name: UA; Complete Time: 00::12 Order name: Urine HCG Qualitative; Complete Time: 00:08 :12 Order name: Diet - Mental Health Tray (call dietary) :49 Order name: Urine TvjmxmyGMOA16/0906:53 Order name: COVID-19 RHVDVEYC88/0822:12 Order name: Belongings List; Complete Time: 23:32 :12 Order name: Document Weight and Height for BMI; Complete Time: 23:32 :12 Order name: Mental Health Evaluation :12 Order name: Mental Health Level 3 :12 Order name: VS q shift; Complete Time: 23:32 :09 Order name: Medically Cleared for Eval by-Psychosocial, Power Supply Engineer dk2(.PSA); Complete Time: 01:08Dispensed Medications:00:13 Drug: Acetaminophen 650 mg [acetaminophen 325 mg tablet (2 tabs)] rr0Rnudo: PO;Signatures:Dispatcher [employer] Lucie Falcon RN RN mf7BzgfbutWing MD MD dk2 Name Value Range Interpretation Code Description Data Nuha rce(s) Supporting Document(s) ID Date Data Source [id number] 03/31/2020 09:14:00 AM EST [facility]Cl[facility] Medical Jeremy terName: Rigoberto AtkinsAge: 39 yrsSex: FemaleDOB: 1980MRN: [id number] Date: 03/30/2020Time: 22:02Account#: [id number] MD:Diagnosis: Psychotic disorder with delusions due to known physiologicalconditionPresentation:03/822:04 Presenting complaint: Patient states: "I ran out of gas in a field kk2and I sat there a little longer after [employer] brought me gas they Jack was there since noon" Patient reports that she has a history ofmental health and addiction. Coronavirus Screening: Have you traveledinternationally or had contact with someone that has traveled and hasbeen ill in the past 3 weeks? no Have you traveled to a location withwidespread or ongoing COVID-19 community spread or outside of [facility]? no Flu-like symptoms reported in the last 14 days: no. Haveyou had close contact with confirmed or suspected COVID-19 case? noHave you been diagnosed with COVID- 19 in the past 30 days? no Are youcurrently on quarantine by Public Health? no. Communicable DiseaseScreen: Negative for fever>/= 100 degrees Fahrenheit. Communicabledisease screen is negative. (-) rash or unusual skin lesion (- )travel/contact with traveler (-) respiratory symptoms.22:04 Acuity: Triage 2 kk222:04 Method Of Arrival: Police kk222:05 Acuity Assignment: Triage 2 kk222:15 Presenting complaint: Patient brought [facility]'s dept [place] bu8Hmlti. Reports that someone called and reported patient sitting in avehicle in a field since noon today. States that the patient hasn'tbeen making sense, reports that she did make suicidal statements onthe way to the hospital.Triage Assessment:22:07 General: Appears in no apparent distress, Behavior is cooperative, iz4zykakwqs. Sepsis Screening: (1)Signs/symptoms infection No. Pain:Denies pain. PSS-3 Now I'm going to ask you some questions that weask everyone treated here, no matter what problem they are here for.It is part of the hospital's policy and it helps us to make sure weare not missing anything important. Over the past 2 weeks, have youfelt down, depressed, or hopeless? Yes. Exhibiting depressed mood.Positive screen for depression, MD provider aware of positivescreening. Education provided. Over the past 2 weeks, have hadthoughts of killing yourself? Yes, with no current ideation.Exhibiting Active Suicidal Ideation (SI). Positive screen for suiciderisk. MD provider aware of positive screening, suicide precautionsimplemented. ESS-6 ordered. In your lifetime, have you ever attemptedto kill yourself? No. Neuro: Level of Consciousness is awake, alert,Oriented to person, place, time. Respiratory: Airway is patentRespiratory effort is even, unlabored. GI: Denies nausea, pain,vomiting.Historical:- Allergies: No known Allergies;- Home Meds:1. Suboxone 8-2 mg sublingual film- PMHx: None;- PSHx: gastric bypass; hand surgery;- Immunization history: Flu vaccine is not up to date.- Social history: Smoking status: Patient uses tobacco products,current every day smoker. Patient uses street drugs, somethingsynthetic, ETOH status Denies use of ETOH.- Advance Directives:: None.Screenin:38 Abuse screen: Denies threats or abuse. Denies injuries from another. te4Bafgjzvytry screening: No deficits noted. Offer of HIV testing :patient was previously offered screening. Fall Risk None identified.Assessment:22:36 General: see triage assessment . sa2Ekmdaaplushu:23:00 Narrative Pt is resting,staff are present, safety is maintained. cp212/0900:11 SAFE Act Report Not Completed. Intervention: Observation Level 3. mq3Snjfii health consult is initiated at 00:11.00:46 Referral Information: Evaluation referral is generated by a police cf8jxvuuu: [employer]. The patient was referred for evaluation becauseDisorganized speech, confusion. Subjective: The patients chiefcomplaint is Pt presents to the ED with confusion and disorganizedspeech and thoughts via [employer]. Pt reports that she dropped nabil off at work this morning in [place], started driving [employer], ran out of gas in a field, tried pushing her car and thenwaited in her car from noon - unknown time (was brought in qfdbte46:00), pt denies SI, HI, Hallucinations, self harm, and denieshaving access to firearms. Pt presents with disorganized speech,disorganized thoughts, would often say, "I don't feel safe at homebecause people keep coming in my home, that's why I stay with jennifer". Pt reports that she took some Janna a day or 2 ago, iscurrently taking Suboxone, and use to be addicted to heroin (ceaseusage in 2014). Pt reports that is not currently in O/P MH tx, hasbeen admitted I/P one time before around 10 years ago for SI. [facility]04[facility]57 DSM-V DX [place] I diagnosis: Psychotic D/O. cp205:04 Subjective: Delusions are denied, Hallucinations are denied. ke8Pnktdbm's mood is elevated. Patient reports history of psychosis,Mental Health Admissions: 1, 10 years ago for SI.05:06 Patient reports history of Current Outpatient Mental Health Services: cm3Mopx. Living Environment: Family / Home Support: unknown The patientcurrently lives with his / her significant other, boyfriend. Detox /Rehab Admissions: [place], [place], heroin. Current Outpt Alcohol orSubstance Abuse Services: None. Patient presents to EmergencyDepartment with the following symptoms within the past 2 weeks:psychosis. Objective: Patient is agitated, defensive, Speech isnormal. Affect is appropriate. Mental status exam: Patientsappearance is appropriate, Patient's behavior is normal, Speech isnormal. Affect is appropriate. Mood is appropriate. Perception isnormal. Appetite is normal. Memory is fair. Energy level is normal.Content of thought is normal. Thought Process is intact. Cognitivelevel is Oriented to person,place and time. Insight / Judgment ispoor. Rapport with interviewer is guarded. Suicidal Ideation: Denies.Homicidal Ideation: Denies.05:17 Narrative Pt is resting, sitter is present, safety is maintained. cp205:18 Janna. Consultation: Psych MD informed of patient's status at 02:30, cp2ED MD notified of patients status at 04:35. Disposition: Medicallycleared for disposition by Dr Alexander. Psychiatric Consult isperformed by phone with Dr Hardy The patient [facility] MHUPatient report is given to Pt will be escorted via PSA and M[facility]. LegalStatus: Patient's legal status will be Emergency: 9.39. Commitmentpapers are completed. [facility] Admission Criteria: The patient displaysdisorientation of such severity as to endanger the welfare of self orothers. The patient requires continuous observation and/or control toprotect self, others or property. The patient's care requires amulti-modal treatment plan under close supervision and coordinationdue to the complexity and severity of the patient's symptoms. Thepatient requires administration and monitoring of psychoactivemedications by skilled medical providers due to the side effects ofthe psychoactive medications or significant dosage adjustments. Thepatient is not a employment service specialist or dependent. ColumbiaSuicide Severity Rating Scale: Suicidal Ideation Rating 0; Intensityof Ideations Rating 0; Suicidal Behavior Rating 0.Psych:03/822:38 Subjective: Delusions are denied, Hallucinations are denied Having mv9mqawtiuc of suicide. Denies suicidal plan. Patient reports that shehas had thoughts of harming herself on and off for a while, butdenies SI at this time. Denies any plan. Objective: Patient iscooperative, Speech is normal. Interventions: Removed personal itemsand placed in bag. Patient placed in hospital gown. Searched personfor dangerous items. Urine collected and sent for urine drug test.Observation Level Level 3 Sitter needed. Charge nurse notified.Lucie Trejo Level 3 order placed.Vital Signs:22:08 BP 164 / 110; Pulse 87; Resp 16; Temp 98.2; Pulse Ox 100% ; Weight kk254.5 kg; Height 5 ft. 2 in. (157.48 cm);03/909:09 BP 129 / 88; Pulse 71; Resp 14; Temp 98.2; Pulse Ox 95% ; Pain 0/10; [id number] Body Mass Index 21 .98 (54.50 kg, 157.48 cm) [id number] Coma Score:00:07 Eye Response: spontaneous(4). Verbal Response: oriented(5). Motor qw0Zkliiret: obeys commands(6). Total: 15.ED Course:03/822:02 Patient arrived in ED. kk222:05 Triage completed. kk222:09 Arm band placed on Patient placed in exam room Patient notified of ln4gohv time.22:10 Wing Alexander MD is Attending Physician. dk222:38 Patient has correct armband on for positive identification. Bed in kk2low position. Call light in reach.22:38 No Physician assisted procedures completed. kk223:32 Urine Culture Sent. [id number]:10 Valuables inventory done. Locked in safe. sk405:07 Morro Hardy MD is Hospitalizing Provider. dk206:37 Nasal Swab Collected by Nurse. jw507:35 No apparent distress. Resting quietly. wd107:35 Sitter at bedside. Diet tray given. kt9Vvztcedajgly Medications:00:13 Drug: Acetaminophen 650 mg [acetaminophen 325 mg tablet (2 tabs)] am2Hryjz: PO;Outcome:05:07 Decision to Hospitalize by Provider. dk209:09 Dispo sition: Admitted to Psych wd109:09 Condition: stable.09:09 Instructed on need for admit.09:09 Discharge Assessment: Patient verbalized understanding of dispositioninstructions. Patient has no functional deficits.09:14 Patient left the ED. fo9Eyjctlhgco:Sofi Moran, RN RN la1Lcodho, Lucie RN RN [id number] sanchez RN RN [id number] bledsoe MD MD [id number], Risa vn4Uxpf, Mu-Ism, PSA PSA tp7Hepnprvumqy: (The following items were deleted from the chart)00:58 00:46 Subjective: The patients chief complaint is Pt presents to the cp2ED with confusion and disorganized speech and thoughts via [employer]. . cp2 Name Value Range Interpretation Code Description Data Nuha rce(s) Supporting Document(s) Procedure Social History Code Duration Value Status Description Data Source(s ) Alcohol intake 04/12/2020 12:00:00 AM EST Current drinker of al cohol (finding) completed Current drinker of alcohol (finding) [facility] Tobacco use and exposure 04/12/2020 12:00:00 AM EST Never used co mpleted Never used [facility] Cigarettes smoked current (pack per day) - Reported 04/12/20 12:00:00 AM EST UNK completed [facility] Smoking 04/12/2020 12:00:00 AM EST Current every day smoker co mpleted Current every day smoker [facility] Smoking 04/12/2020 12:00:00 AM EST Unknown if ever smoked comp leted Unknown if ever smoked [facility] Vital Signs ID Date Data Source [id number] 04/15/2020 04:16:31 PM EST [facility] Name Value Range Interpretation Code Description Data Source(s) WEIGHT RECORDED 116.1 lb 116.1 lb [facility] Body height Measured [address] [facility] TRANSFER FROM [facility] ID Date Data Source [id number] 04/09/2020 09:33:00 AM [facility] katja Name Value Range Interpretation Code Description Data Source(s) WE[facility].2 [facility] 157.48 centimeter [facility] WEIGHT 54.5 kilos [facility].48 centimeters 157.48 centimeter [facility] Patient Treatment Plan of Care Planned Activity Planned Date Details Description Data Source (s) 24 HR Nicotine 0.875 MG/HR Transdermal Patch 04/15/2020 12:00:00 AM [facility] Citalopram 10 MG Oral Tablet 04/15/2020 12:00:00 AM [facility] Hydroxyzine Hydrochloride 50 MG Oral Tablet 04/14/2020 12:00:00 AM [facility] Nicotine 4 MG/ACTUAT Inhalant Solution 04/14/2020 12:00:00 AM [facility] Bariatric Fusion Oral Tablet Chewable 04/14/2020 12:00:00 AM [facility] acetaminophen (TYLENOL) tablet 650 mg 04/11/2020 10:25:10 PM [facility] Citalopram 20 MG Oral Tablet [facility] aripiprazole 2 MG Oral Tablet [facility] buspirone hydrochloride 15 MG Oral Tablet [facility] Clonidine Hydrochloride 0.3 MG Oral Tablet [facility] Glecaprevir-Pibrentasvir 100-40 MG Oral Tablet (MAVYRET) [facility] Fluoxetine 20 MG Oral Capsule [facility] Cyclobenzaprine hydrochloride 10 MG Oral Tablet [facility] aripiprazole 2 MG Oral Tablet [facility] Citalopram 40 MG Oral Tablet [facility]
[2021-02-02 23:41] VITALS: BP 159/82
--- OUTSIDE RECORDS SUMMARY | 2021-02-03 01:05 | CCD ---
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 H [facility] Platelets [#/volume] in Blood by Automated count 323 10*3/uL 150-400 [facility] ID Date Data Source [id number] 04/13/2020 07:46:[address] [facility] Name Value Range Interpretation Code Description Data Nuha rce(s) Supporting Document(s) Thyroxine (T4) free [Mass/volume] in Serum or Plasma 0.78 ng/dL 0.93- 1.70 L [facility] ID Date Data Source [id number] 04/13/2020 07:46:[address] [facility] Name Value Range Interpretation Code Description Data Nuha rce(s) Supporting Document(s) Thyrotropin [Units/volume] in Serum or Plasma 2.070 u[IU]/mL 0.270-4. 200 [facility] ID Date Data Source [id number] 04/13/2020 07:46:[address] [facility] Name Value Range Interpretation Code Description Data Nuha rce(s) Supporting Document(s) Albumin [Mass/volume] in Serum or Plasma by Bromocresol green (BCG) dye binding method 3.7 g/dL 3.5-5.2 [facility] Bilirubin.total [Mass/volume] in Serum or Plasma <1.2 [facility] Calcium [Mass/volume] in Serum or Plasma 8.7 mg/dL 8.6-10.0 [facility] Chloride [Moles/volume] in Serum or Plasma 102 mmol/L 98-107 [facility] Creatinine [Mass/volume] in Serum or Plasma 0.56 mg/dL 0.50-0.90 [facility] Glucose [Mass/volume] in Serum or Plasma 103 mg/dL 70-140 [facility] Alkaline phosphatase [Enzymatic activity/volume] in Serum or Plasma 74 U/L 35-104 [facility] Potassium [Moles/volume] in Serum or Plasma 4.5 mmol/L 3.4-5.1 [facility] Protein [Mass/volume] in Serum or Plasma 6.6 g/dL 6.4-8.3 [facility] Sodium [Moles/volume] in Serum or Plasma 138 mmol/L 136-145 [facility] Aspartate aminotransferase [Enzymatic activity/volume] in Serum or Plasma 17 U/L <32 [facility] Urea nitrogen [Mass/volume] in Serum or Plasma 14 mg/dL 6-20 [facility] Osmolality of Serum or Plasma by calculation 287 mosm/kg 275-300 [facility] Creatinine/Urea nitrogen [Mass Ratio] in Serum or Plasma 25 [facility] Bicarbonate [Moles/volume] in Serum 29 mmol/L 22-29 [facility] Alanine aminotransferase [Enzymatic activity/volume] in Seru m or Plasma 13 U/L <33 [facility] Anion gap 3 in Serum or Plasma 7 mmol/L 8-15 L [facility] Glomerular filtration rate/1.73 sq M pre dicted among non-blacks [Volume Rate/Area] in Serum or Plasma by Creatinine-based formula (MDRD) >6 0 [facility] Glomerular filtration rate/1.73 sq M pre dicted among blacks [Volume Rate/Area] in Serum or Plasma by Creatinine-based formula (MDRD) >60 [facility] ID Date Data Source [id number] 04/13/2020 07:37:[address] [facility] Name Value Range Interpretation Code Description Data Nuha rce(s) Supporting Document(s) Hemoglobin A1c/Hemoglobin.total in Blood by HPLC 5.4 % 4.0-6.0 [facility] Glucose mean value [Mass/volume] in Blood Estimated fr om glycated hemoglobin 108 mg/dL <126 [facility] ID Date Data Source [id number] 04/12/2020 04:13:[address] [facility] Name Value Range Interpretation Code Description Data Nuha rce(s) Supporting Document(s) History and Physical [facility] MOYRTn7zYnTCSyCp64/CHIckVYJvb8IeUXpjJNe1DVdzGGYmQ4ExUSM1rN9oZKU7RGbVVyUaWsGkNxLz [facility] [file] AgICAgICAgICAgICAgICAgICAgICAgICAgICAgICAg RMYiOLIySHPhZOJoUMCyFJJnCWPiZTEiKXWjOZKpLUOqDMHyXCGpOCPxCGBuRVRaTEWzFZYmOSAxTH7F ICAgICAgICAgICAgICAgICAgICAgICAgICAgICAgICAgICAgICAgICAgICAgICAgICAgICAgICAgICAg ICAgICAgICAgICAgICAgICAgICAgICAgICAgICAgIC SkWZRpNPYjSP2MSZVbLHGeYRBmLWRfFREiIPHtHECrBPSgRJBrZPFpYMQoGQIxDTPzELZlOTSuXJUbXI ApBJGpDNPxYSIoYASrNEJuRWXxBKZfKWVgWGKmFRPwXOSvPUFxEQZoPLWpJBJmJOZaIY3QRBWxCSJrXL AgICAgICAgICAgICAgICAgICAgICAgICAgICAgICAg ICAgICAgICAgICAgICAgICAgICAgICAgICAgICAgICAgICAgICAgICAgICAgICAgICAgICAgICAgICAg PT2AFAWbSOCuTVSbPGChDTYvITInHFQtFKAtGMBsLJOdZOCuUFKvIXNpMEZeLZUoNNZcMWVkPGYdVUKw ICAgICAgICAgICAgICAgICAgICAgICAgICAgICAgIC PnALSgTWJqCAOlTP6NICGbJPJbNBHmQTMxHETqBZCbEALlISAtKARgZHHkHGEgYKPwDGZzALIcIENwAI TgIWPiQZKmEDIdIPOgQPIiQGZcQUDuQKRbSIBcIZUpMJAeJOWyVMLrNMWoCURmEVElIJInFP9QHEGjSD AgICAgICAgICAgICAgICAgICAgICAgICAgICAgICAg ICAgICAgICAgICAgICAgICAgICAgICAgICAgICAgICAgICAgICAgICAgICAgICAgICAgICAgICAgICAg TMFnFA5ZVIZeTTKwKEJwDBQuARHhTQCaBIRiYCTrRUVzUEClQSVyGLPrUIVlCJTxWNVdLZBxTUIlHUNa ICAgICAgICAgICAgICAgICAgICAgICAgICAgICAgIC HtQKZgVZQzWBOyRUKcEA0MLQCjABXhCXLbAVVvIBVyAXSjYIXqJKEcENUgAXMrYHXdHFBzFEWwVHDyKY XaZAFiAJUqMXNtCNJoFRMcEHTgNTKgVOZyWWMxAALxDAVcLAVdYZNmCKIkFTRnOULmYISrNZBdWL7GQL 72xMJeh4W2LIIkXC9crtk/Kl7JNCkyhfBbmUNvRY3F RzJlJG8ezq5GKgOhDL4whs0CHJdGJwVcL1D6sFErSAFzOYOQIdBtV57bQNmqJz50DBxfGFWmXmEbQDf4 Si4HEaGfY1hjZMAtEmF7YIJdHvU6PJHbSxP9CLJzOzOqTJLtELNuCZEgRFYXJE2HDeLvS1XxwF05FKFZ Cj4+GQevbaCyWvsGTqW4OLSsf2WzPDi0IJ1UIDQdNe fog4ObZdgpQOCRGDoaMJ0EESO4DFZ6DJPoQa9LAGDbV846jhFhDO3MWh7OZfBwXW4coz4RPdzeXWHhTe cHXow8YAkiVZ6LgTBoNMoIHaCuHolkONTinIYMACLnHZGknLhmBTFsVUHlRSCtUtEoReRzJSBuEcsfMJ SGVTaVZqJxT2Qvh2XnAoL2MCCgXlDpHSjdWJPoXdT3 LN11hNjfZX2VEIIwJLBdAB62XFX5DWHvQn3TKb6WPmYxLU6klb5NWbmbQWJwYwjTLlf8ULeaSP4TlRJv M7FciZAqs1cVBdUzL1WMBFI2MUJyBu3IFVOpFaLmMRHnVZxxDA9hSULiUIKGeMjdkbC3JW0RZD2mluYe AD6EPvMbGb0fXc4QTvKwI0UjW9AkDPInNYRKUBoeJM 8DVZcmYC2hGE0Lz8AAfIQncZ6zcb0VHRFkCNJmCpzfbj1JEafvO8Q2mOafJFXbEzNxDCTNMIheOF9VAF IsITE1JTUuESWkURLYYvVbK32zLW6HQ1Dmx75kIzI6UEYpOlRlDLanKE79sUjcisKomKKilCqkKP5UGz 4+DQplbmRvYmoNCnhyZWYNCjAgMzkNCjAwMDAwMDAw HXDtRhV2BdBrIx3JEZVuABByOKEfCkLgQTGjYFRqLKqfXCVlYQY3Cqv5CLDgOFOkRG5MNeCwIMSlJwCb IsAmESHaEFGban9OODGpYLMzYIF0LnMtFVNsLWBeKUdvVMDuLXYpGCM0AZXyYLUnTR7GZwKvYXViZNBa VeQgGZOsXEJdrw5STYZtBAOiRuMpMjKjIMBxCYQiWR jiXWLtEWM1WvB7OWFhSXLxDA4OKzKgRVZhUWw9MZGwYNEmTIErjq3ZZDFkRIJjCAjxJMYfSVDfBNYpMM ftSIHjDPIkFTd6TKLsUSXcZM1TLnFvRELrSWDsRHMuISUaOATlco4QFQGvLEAiVIPtSkLmXPVrXHLhHB ctPIOnARV6TcPkGAFhATOaOI5DGsWsECBrNLKpQLKl OXJgOMMlyr9DQMJhUJNdLqV0LCZfRWFiDFHuZLqzHOQcHFW5JxAgZJEuGJIbZE4RIuPxKTEdTYw5QlRa KMQlRKSwjh5AZIHhPKKkSrjrIdIdCOHlWKWmITslAGBbASK8SIVoTIVnPHTiJB2WWwCpQHWqCMy9ZaVp XKNnPRWjjo9NXVKnNUZxZWA6JFKoHXIbDDFrHGrhIH EjNVQ6UhAeSZWxIGUaSK6DVfVdKNXiYmQ6AcIbTXZqBGTzjk6LVDPsBYHcGLD5CSEfSUKuTMCkFLmgNS QlMQDeZmEzDMJaQHBuWT8LSoPwXOZwJmE1KZHjZJTkPPOmks9RJPBpHWOySHF5JYBvPIFgHNCuATrrFM DfBTLnVMsqBUNvYYGfYS7HBmXsXOWwLpO9BGInEZFr FPXvlv2ZQJWmTGHcEam4EPUpKAReZXDuMLqhZKVpWRVfXFAxVDRsVPBuVT5LKpExONFoSyWsIKPfPMXy REMavv5GIRQlYMJtMMX9MpIcUGYyJDEbIRbjFIYmNVF7YwC2PCDrBVMbXO7QOnZfTKKdQsScPEWgAVIe HHGtkh7VMCNvRUOuVoX6JHVoCZGmSGYxEOmmRETlNS J7Hqw4KECiKDStSM0PWnQwPYcgBHSEAjs4ZLglW3y8MFZrMH6XE5Zta1EeLhaxBCMMOFzuJO3sokUnSP GwOe4UP0gDDvmjCGV0PlE9SiQ1JSGjKSS0RyTcSDV8EOR2XgL7HNTaTF6lVCLbICYuSSIpKnosRBYtNf umK6LfDIg6MUX2RaOfBUW4XrIyJQ9SMj9IUdC7CGR9eMJsKy2HScE0UMXISxUgGO7IKIe= ID Date Data Source [id number] 04/12/2020 04:06:[address] [facility] Name Value Range Interpretation Code Description Data Nuha e(s) Supporting Document(s) History and Physical [facility] XGKRWu8uErORSdSd56/NYOrrGQEin6PgCLdiVYs3JCpiTIBoG9IcOTQ2sJ3mZFO7TUrKHlOoOkEeHxSy lbm [file] ICAgICAgICAgICAgICAgICAgICAgICAgICAgICAgICAgICAgICAgICAgICAgICAgICAgICAgICAgICAg ICAgICAgICAgICAgICAgICANCiAgICAgICAgICAgICAgICAgICAgICAgICAgICAgICAgICAgICAgICAg ICAgICAgICAgICAgICAgICAgICAgICAgICAgICAgIC AgICAgICAgICAgICAgICAgICAgICAgICAgICANCiAgICAgICAgICAgICAgICAgICAgICAgICAgICAgIC AgICAgICAgICAgICAgICAgICAgICAgICAgICAgICAgICAgICAgICAgICAgICAgICAgICAgICAgICAgIC AgICAgICAgICANCiAgICAgICAgICAgICAgICAgICAg ICAgICAgICAgICAgICAgICAgICAgICAgICAgICAgICAgICAgICAgICAgICAgICAgICAgICAgICAgICAg ICAgICAgICAgICAgICAgICAgICANCiAgICAgICAgICAgICAgICAgICAgICAgICAgICAgICAgICAgICAg ICAgICAgICAgICAgICAgICAgICAgICAgICAgICAgIC AgICAgICAgICAgICAgICAgICAgICAgICAgICAgICANCiAgICAgICAgICAgICAgICAgICAgICAgICAgIC AgICAgICAgICAgICAgICAgICAgICAgICAgICAgICAgICAgICAgICAgICAgICAgICAgICAgICAgICAgIC AgICAgICAgICAgICANCiAgICAgICAgICAgICAgICAg ICAgICAgICAgICAgICAgICAgICAgICAgICAgICAgICAgICAgICAgICAgICAgICAgICAgICAgICAgICAg ICAgICAgICAgICAgICAgICAgICAgICANCiAgICAgICAgICAgICAgICAgICAgICAgICAgICAgICAgICAg ICAgICAgICAgICAgICAgICAgICAgICAgICAgICAgIC AgICAgICAgICAgICAgICAgICAgICAgICAgICAgICAgICANCiAgICAgICAgICAgICAgICAgICAgICAgIC AgICAgICAgICAgICAgICAgICAgICAgICAgICAgICAgICAgICAgICAgICAgICAgICAgICAgICAgICAgIC AgICAgICAgICAgICAgICANCiAgICAgICAgICAgICAg ICAgICAgICAgICAgICAgICAgICAgICAgICAgICAgICAgICAgICAgICAgICAgICAgICAgICAgICAgICAg ICAgICAgICAgICAgICAgICAgICAgICAgICANCjw/pAZxF9uvaZOgaiY3R4fsAx4HZi8UFG2pf4EiPQMm BGelcsFqWkqKCcRnAHWzYnvOApp5VMyyHO1CrZCcR4 OjS4XgBYnkEK6DTTUqFUZrnRDnOVGcVXSfYrZ0WOWvXXrkEZ2EsNJmVCyrBEGsTUXmLcJyIPRzAPAtMQ YyRPPmRVQJXQTvSBEsEtAoISVuDZBzBAsvYWFSCI3IFmGkC7QslZ09CAuZQp4+DQplbmRvYmoNCjQzID Fyw7TjGVb8BI5KIQVaZcuub1HpYJJtKYQCIUarNI6L OVS6JFC4NASlVe9GSMBeH488cxOjOM8CAh5LLrIoSC8yqp3KHSGlBJHrZegPXlt8WFyxRL6NsGWbBAzU OrQgLkfeRSnhumIFTYhoxUDiEJ0WVPT9GFJwOkTrFbDmCsAgVIF4QBhdUO8rLMmzPP8TNKP9THlqLGEn SEZjN6nOIuXbNCCvUvDxxWdgQY1LWsCpX6ObgoXoaH C7CuQgBBPUQx2+ODxwocPhAdsPRaT9TRAbe6BoGCz0EB9CVEDgGCwdSM3LVPWcwW1gEZutQH2RNuO3MM QcJXETWlVcO97vcLNrFLg5T6YtGwJjXVQzQogxWGNsJRsrGaYeCHSuFfHfYWntWM5+ID4+XVlaHO0XQS ajvpTsYVSjAh1QECDxNKScRW8vVLDsILWcS1U5jGma FTMSJfZjJ7luugvxGS7hPBDpD289zLvknrEnJAUjVYVrWy5NANMbANJ8FYMwrSRqPANqSQOJSNkyTK4R gQSlAYF3jL5gTJogAHRcVUVeW3gNXuPwbMdvSZ87bHejbxVoyAPoWLs+Xb6HIP3qs4VdWTe7itTrETvh AON2SQxuXAJbQROyGMRwDHK4NXK8KWXNAfOxQOXvNR PlFLbdICSfZEFtvk8WWNFrZRWaRLQ8FXJvSZXcUFFyMOsoDTEjJJM0QDTlBNIxRECvFC1ZEtVlQYEmPF HxMBhbRHNdIVYvyt0AGGUjALKvYZR1QEOxQHIsVSWtEMjwSLDzTEZ0HMRrCIKtKGWzGC4BLuOrXPNrUE f2AxKyAYBmMPYxvd7QHWWiBGLzReg6FKWvFNXvKYKl FSpiDDVtFPBaNEf8ZWDuAOLyLP5KVkSpLDUlBSU3RZmgPJJrMJGsek7YHNNeEWPhBBX3SBEjKECoHGMm GQacIKJmEMS7AgXtKIStUKDaUP9ZDwIqRTIxSNddYUMnXEXpGGIwir4FBIMmNYDrOCZ0DGUwYJWgLRWx ENxwJSMqJPVeWIC9RCApOUNiSN2EVnKcZAZbLzEtLm QyVNIrGTOyhq5FYKBjWRTsOXZ7JVQhMZQvNQYfVAncATNlZKL2CRjdUYAfCYIkYT5SWtWfPEFdOlC2ZD WgIGZkZWBkkl1BLWLlMCJpErYhIFGzSXKqAKAsPUiwNWJgEOJ8AoUgBQMgNCEtRQ6XKqNsNLRqEhhcPW DkEOBpHPKgsp2SUNYtRHChLtW5DjSkWHKvRMJuHCvf RCKlDTS2GSvuORXkZGXaYM6ZYpZyJGAsVbn9MhKqHUDeSCOrvr5WFIKoFCBuGFwhTdHbRYTpZOUrWHkf FLGaTFE2ZYAyYAStYEZuYQ4CUjGiUBSuPrl3LpXlTVIgFRNypc2NYMWxLHLpHWX5IVVeDWDaHPEzEWjh QPBpEIMmFuP7ZLRqWKMmHS7EJxFdHDZkLvWlCdYzHQ HhTEEahy7VBDBnJKUtOTBpDcDaDXDxDSVgROnjNJOlTJMbAiA8HGTcPGCkCA8WAzFuUPQhBsD8SDOlQZ BeKQSzsr3TBRErMJUiAefzFFTjEKMsLOXvFCoqLYOpRYX7OWYrDGHeBYIlEM0CSaUqQDSbPrdaQqicRS XcLHAgvc5EWTWlEDWkXtWoRWQrWMGbPFOdZHkrEYXu ZOX8QgUeFVLsZDNaUT5PZgQgYEWcMdp3LuXiXQYyAHOtjc3VTTZaZCRyKQDoWEOvKZQwJUQcBDdbGCJv UAS9GXrqJGVqBNIhEN1IKyEaQFNpLfz7UiNbKWUgGLNxsw0JTEJsVRU8XCOiBuQgODEtPIBbZPqnNSZo SLPwTNI7SIThAFTtBT1AOsNvXAsoELJKLem0EBjjA3 z1WAP0Bx4OT1Xce4VzBOUsMADODAfhQH9nqcXdZOVbPy4LS3fOSfwwL6A7ZXJ7CbJtIVTgEkl2RdWuUV a3BfF4PBBtCtJpTE7hWKAcHaQoOLNlWzD6VCV7QLhkWzF8FhleOak2QHIwZEIqXpNsTM7UGv0TVbM2XR S4yUYgFc4HTPH6BEUOZnBnLO3DZMp= ID Date Data Source [id number] 04/12/2020 11:17:24 AM [facility] Name Value Range Interpretation Code Description Data Nuha rce(s) Supporting Document(s) Consultation [facility] HYIXSi2uFeQZTeNt12/RNJziETOha7RnYQveJKs4RSjcEWFxS5UhPBY6eF7lSRW0FNoYNnAaMeMyRjEf lbm [file] IhxKzkOPSZDrP5OZZ2UJryGEQCUq9B ID Date Data Source [id number] 04/11/2020 12:46:00 PM EST [facility] Name Value Range Interpretation Code Description Data Nuha rce(s) Supporting Document(s) SARS coronavirus 2 RNA [Presence] in Res piratory specimen by EZRA with probe detection [facility] This lab was ordered by [facility] a nd reported by [facility]. ID Date Data Source [id number] 04/06/2020 03:41:00 AM EST [facility] [address] [id number] NAME: RIGOBERTO ATKINS#: [id number] PHYSICIAN: MORRO HARDY MD ADM. DATE: 03/31/20ACCOUNT #: [id number] DISCH. DATE: 04/05/20DISCHARGE SUMMARYIDENTIFICATION: A 39-year-old female with mood disorder and substancedependence.CHIEF COMPLAINT: "I got lost."REASON FOR ADMISSION: Unable to take care of herself, disorganization.HISTORY OF PRESENT ILLNESS: The patient was brought to the Emergency by theSheriff after they found her in the field trying to push her car back [facility]. The patient was highly disorganized. He [...] mother, who is the mainsupport live in [place]. She was living with her boyfriend before [facility]. She has her own apartment. The [...] Dictated: 04/05/2020 09:55:53Date Transcribed: 04/06/2020 02:41:09JV/VIMJob #: [id number]: 04/05/20 0955 Electronically SignedTRANS:04/06/20 0341 MORRO HARDY MDTRANS BY:IATDAKAYLEY SIGNED:04/06/20REPORT COPY TO: Name Value Range Interpretation Code Description Data Nuha rce(s) Supporting Document(s) ID Date Data Source [id number] 04/05/2020 09:19:[address] [id number] NAME: EUGENERIGOBERTO#: [id number] PHYSICIAN: MORRO HARDY [facility] #: [id number] ADM. DATE: 03/31/20PATIENT : 80 DISCH. DATE: [50}DISCHARGE SUMMARYMHU discharge planNicotine Replacement TherapySmoking Status Current every day smokerPrescribed at discharge [facility]/Drug DisorderAlcohol or Drug Disorder counseling prescribedPersonal Care InstructionsDischarge Activity: As toleratedDischarge diet: RegularFollow Up CareFollow Up:Follow up with your Primary care physicianPriority ItemsUrgent/Important items that need to be addressed at primary care follow- upappointmentDischarge InformationDISCHARGE INFORMATION* Thank you for [facility] and allowing us toserve you* Our Goal is to provide the highest quality of care.* This discharge information is to help you better understand your diagnosisand medication* Avoid taking lvlb-nzy-yxjybhv medicines unless approved by your physician.* Take your medications as prescribed. DO NOT stop any medications unlessapproved first* Weigh yourself daily. Report any gain of 5 lbs in a week* 24 Hour Crisis HOTLINE available: Call Reachout at [phone]* Chem. Dependency: Walk in Clinics [place] ([phone]) and [facility] ([phone]) anytime Sunday thru Sunday 8 to 10am. [facility] ([phone]) anytimeSunday thru Sunday 8 to 10am. [facility] ([phone]) Sunday or Sunday from 8to 10am (Bring $30 to [facility]) SMOKING CESSATION* Smoking is dangerous to your health. It delays the healing process, andworks against your medications. Not smoking will improve your health* Our hospital participates with the Opt-to-Quit program. You will be contactedafter discharge by the [facility] Smoker's Quitline for support with tobaccocessation. You have the option once contacted to refuse this service.* You can also go online to www.[employer]. Free nicotine replacementsare available ___Attention* You should [...] rce(s) Supporting Document(s) ID Date Data Source [id number] 04/03/2020 11:24:00 AM RAÚL [facility] [place], [place] [address]VFLDWF HEALTH PROGRESS NOTEPATIENT NAME: RIGOBERTO ATKINS PHYSICIAN: MORRO HARDY, MDAUTHOR: Mona MURPHY,DhruvA. DATE: 03/31/20 MR#: [id number] NOTE DATE: 04/03/20 RM#: [id number] TIME: 1126 [...] PONicotine (Nicoderm) 21 MG DAILY TOPMiscellaneous Read OQAZ46V NAAcetaminophen (Tylenol) 650 MG Q4HPRN PRN POAcetaminophen [...] self/othersDATE SIGNED: 04/03/20 Electronically SignedTIME SIGNED: 1126 LRYIC BANKS MD Name Value Range Interpretation Code Description Data Nuha rce(s) Supporting Document(s) ID Date Data Source [id number] 04/03/2020 12:14:00 AM [place], [place] [address]PATIENT NAME: RIGOBERTO ATKINS#: [id number] PHYSICIAN: MORRO HARDY MD ADM. DATE: 03/31/20PROGRESS NOTE DATE: 04/02/20 RM.#: [id number] #: [id number] NOTEIDENTIFICATION: A 39-year-old female with schizoaffective disorder [...] Dictated: 04/02/2020 10:20:11Date Transcribed: 04/02/2020 23:14:23JV/GBJob #: [id number]: 04/02/20 1020 Electronically SignedTRANS:04/03/20 0014 MORRO HARDY MDTRANS BY:COLLETTE SIGNED:04/05/20REPORT COPY TO: Name Value Range Interpretation Code Description Data Nuha rce(s) Supporting Document(s) ID Date Data Source [id number] 04/01/2020 11:34:[address] [id number] NAME: RIGOBERTO ATKINS#: [id number] PHYSICIAN: MORRO HARDY MD ADM. DATE: 03/31/20PROGRESS NOTE DATE: 04/01/20 .#: 316ACCOUNT #: [id number] NOTEIDENTIFICATION: A 39-year-old female with mood disorder, depression, andpolysubstance dependence.VITAL SIGNS: Temperature of 98, pulse of 87, respirations 16, blood rlrehvcv151/70.SUBJECTIVE: The patient declined the interview. She is [...] tated: 04/01/2020 11:00:29Date Transcribed: 04/01/2020 22:34:09JV/GBJob #: [id number]: 04/01/20 1100 Electronically SignedTRANS:04/01/20 2334 MORRO HARDY MDTRANS BY:COLLETTE SIGNED:04/02/20REPORT COPY TO: Name Value Range Interpretation Code Description Data Nuha rce(s) Supporting Document(s) ID Date Data Source [id number] 04/02/2020 08:12:00 AM EST [facility] katja Performed at: [facility] [place] [place] [id number] Director: Macy Valdes MD, Phone: [phone] at: [facility] [address] [place] [id number] Director: Macy Valdes MD, Phone: [phone] at: [facility] [place] [id number] Director: Macy Valdes MD, Phone: [phone] Name Value Range Interpretation Code Description Data Nuha rce(s) Supporting Document(s) HIV 4TH GEN. Non Reactive Non Reactive N [facility] pital ID Date Data Source [id number] 04/02/2020 08:11:00 AM EST [facility] katja Performed at: [facility]Co[address] [id number] Director: Macy Valdes MD, Phone: [phone] at: [address] [id number] Director: Macy Valdes MD, Phone: [phone] at: [address] [id number] Director: Macy Valdes MD, Phone: [phone] Name Value Range Interpretation Code Description Data Nuha rce(s) Supporting Document(s) COMMENT: Comment . [facility] Strong reactive antibody screen (s/c rat io >10.9) isconsistent with past or present HCV infection. Follow-uptesting by HCV, Quantitative, Real time PCR (#[id number]) isrecommended to determine viral load/diagnosis of currentHCV infection.Effective May 10, 2020 HCV Ab w/Rflx to Verification will be made non-orderable. [facility] offers order code [id number] HCV Antibody reflex to EZRA. HCV AB >11.0 0.0-0.9 [facility] INFCE Result Units: s/co ratio ID Date Data Source [id number] 04/01/2020 03:02:00 PM EST [facility] Name Value Range Interpretation Code Description Data Nuha rce(s) Supporting Document(s) HEP C Reactive-Prelimin. Nonreactive [facility] The test result is interpreted as PRELIM INARY POSITIVE forHepatitis C antibodies.*Confirmatory testing will followConfirmatory results must be considered in making adiagnosis related to HCV infection* ID Date Data Source [id number] 03/31/2020 03:58:00 PM EST [facility] Exam Number: [id number] OF EXAMINATIO N: 03/31/2020 14:46 ESTTECHNIQUE: 4 [...] rce(s) Supporting Document(s) ID Date Data Source [id number] 03/31/2020 03:43:00 PM EST [facility] Exam Number: [id number] OF EXAMINATION : 03/31/2020 14:46 ESTTECHNIQUE: 3 [...] rce(s) Supporting Document(s) ID Date Data Source [id number] 03/31/2020 03:32:00 PM EST [facility] Exam Number: [id number] OF EXAMINATIO N: 03/31/2020 14:46 ESTU/S VENOUS [...] rce(s) Supporting Document(s) ID Date Data Source [id number] 03/31/2020 02:36:00 PM EST [facility] [address] [id number] AND PHYSICALPATIENT NAME: RIGOBERTO ATKINS MR#: [id number] PHYSICIAN: MORRO HARDY MDAUTHOR: Madelyn Rosado DATE: [...] 164/110 132/76B/P MeanPulse Ox 100O2 DeliveryO2 Flow [id number] ExaminationGeneral Appearance no acute distress, drowsyHead atraumaticENT [...] CloudyUrine pH (5.0 - 8.0) 6.0Ur Specific [place] (1.010 - 1.025) 1.032 HUrine Protein (Negative) 1+Urine Ketones (NEGATIVE) NegativeUrine Blood (NEGATIVE) NegativeUrine Nitrite (Negative) NegativeUr Bilirubin Confirm (NEGATIVE) NegativeUrine Urobilinogen (0.2 - 1.0 mg/dL) 1.0Urine Leukocytes (Negative) 1+Urine RBC (NONE SEEN) 3-5 RBCs/HPFUrine WBC (NONE SEEN) 6-10 WBCs/HPFUrine Crystals (NONE SEEN) FEW AMORPHOUSUrine Bacteria (NONE SEEN) ModerateUrine Glucose (NEGATIVE) NegativeUrine HCG, Qual (Negative) ZdfasamlJvpexfnjcwlb53/08 2222 URINE,CC: Urine Culture - RESAssessment/PlanDiagnosis/Problem1. Hand [...] Full codePlan discussed with patientCase discussed with watch case polisher, nursing staffCopies ToCopies to Family Provider: PCP [...] EST Reported By: Alejandro ORO M.D.XAM# TYPE/EXAM [id number] DX/HAND COMPLETEDATE OF EXAMINATION: 03/31/2020 14:46 ESTTECHNIQUE: 4 views of the left hand were obtained.HISTORY: PainFINDINGS:No evidence of acute fracture or dislocation. Alignment is normal..Alignment is normal. No aggressive osseous lesions or erosions. Bonemineral density is unremarkable. Visualized soft tissues are normal.IMPRESSION:No evidence of acute fracture or dislocation.Electronically signed in PS360 by: Nick Oro M.D. 03/31/202015:31 EST Reported By: Alejandro ORO M.D.EXAM# TYPE/EXAM [id number] US/U/S VENOUS DOPP ARM/LEG BILADATE OF EXAMINATION: [...] ID. From records she apparently saw [place]. [place] ([place]. If viral load is high she should follow up with her on D/C.Bactrim recommended for 7 days.ADDENDUM: Madelyn Rosado on 04/02/20 at 1401HIV neg. Hep C antibody + viral load was cancelled pt refused draw. Suggest f/uwith Dr. Malone in [place] on d/c.DATE SIGNED: 04/02/20 Electronically SignedTIME SIGNED: 1401 MADELYN ZULUAGA Name Value Range Interpretation Code Description Data Nuha rce(s) Supporting Document(s) ID Date Data Source [id number] 04/01/2020 01:20:00 AM EST [facility] [place] [id number] NAME: RIGOBERTO ATKINS#: [id number] PHYSICIAN: MORRO HARDY MD ADM. DATE: 03/31/20ACCOUNT #: [id number] .#: [id number] ASSESSMENTIDENTIFICATION: A 39-year-old female with mood disorder and substancedependence.CHIEF COMPLAINT: "I got lost."REASON FOR ADMISSION: Disorganization, unable to take care of herself.HISTORY OF PRESENT ILLNESS: According to the records, the patient was broughtto the Emergency by the [employer] Operations Manager after they found in the field, trying to pushher car [TIME: 00:38] ____ run out of gas. The patient was highlydisorganized, could not explain what happened [facility] hospital and in Emergency, the patient continues to have this presentationand she is disorganized with pressure in her speech, but she is cooperativeduring the interview.Today, the patient stated that she went to drop off her boyfriend on [facility] in [place] for work, and coming back, she got [...] [facility] but we do not go [...] Dictated: 03/31/2020 10:47:58Date Transcribed: 04/01/2020 00:20:02MAXIMILIAN/[place] #: [id number]: 03/31/20 1047 Electronically SignedTRANS:12/10/20 0120 MORRO HARDY MDTRANS BY:COLLETTE SIGNED:04/01/20REPORT COPY TO: Name Value Range Interpretation Code Description Data Nuha rce(s) Supporting Document(s) ID Date Data Source [id number] 03/31/2020 06:53:00 AM EST [facility] katja Name Value Range Interpretation Code Description Data Nuha rce(s) Supporting Document(s) COVID-19, EZRA NEGATIVE NEGATIVE N [facility] Methodology: Nucleic Acid AmplificationN egative results should [...] Nuha rce(s) Supporting Document(s) SARS-CoV2 Rapid [facility] This lab was ordered by [facility] and reported by [facility]. ID Date Data Source [id number] 03/30/2020 11:18:00 PM EST [facility] Name Value Range Interpretation Code Description Data Nuha rce(s) Supporting Document(s) WBC 9.45 x10E3/uL 4.0-10.5 [facility] RBC 3.97 x10E6/uL 4.20-5.40 L [facility] Hemoglobin 10.6 g/dL 12.0-16.0 [facility] Hematocrit 32.2 % 37.0-47.0 [facility] MCV 81.1 fL 81.0-99.0 [facility] MCH 26.7 pg 27.0-31.0 L [facility] MCHC 32.9 g/dL 32.7-35.6 [facility] RDW 14.3 % 11.5-14.0 H [facility] Platelet count 369 x10E3/uL 150-450 N [facility] ital MPV 9.7 fl 6.9-9.5 H [facility] ANRBC% 0 % 0 [facility] SEG. NEUTROPHIL 47 % 34-64 [facility] BAND 3 % 5-11 [facility] LYMPHOCYTE 37 % 25-45 [facility] EOSINOPHILS 1 % 0-7 [facility] MONOCYTES 12 % 2-10 H [facility] ID Date Data Source [id number] 03/30/2020 11:02:00 PM EST [facility] Name Value Range Interpretation Code Description Data Nuha rce(s) Supporting Document(s) ACETAMINOPHEN < 2.0 ug/mL 0-30 [facility] al ID Date Data Source [id number] 03/30/2020 11:02:00 PM EST [facility] Name Value Range Interpretation Code Description Data Nuha rce(s) Supporting Document(s) SALICYLATE < 1.7 mg/dL 0.0-20.0 [facility] ID Date Data Source [id number] 03/30/2020 11:02:00 PM EST [facility] Name Value Range Interpretation Code Description Data Nuha rce(s) Supporting Document(s) ETOH NONE DETECTED [facility] NONE DETECTED ID Date Data Source [id number] 03/30/2020 11:02:00 PM EST [facility] Name Value Range Interpretation Code Description Data Nuha rce(s) Supporting Document(s) GLU 84 mg/dL 70-110 [facility] Patients taking Sulfasalazine may have f alsely depressedGlucose levels. Patients taking Sulfapyridine may havefalsely elevated Glucose levels. Patients should be drawnfor Glucose before the initial administration of eitherdrug. BUN 12 mg/dL 7-23 [facility] CRE 0.645 mg/dL 0.500-1.300 [facility] GFR > 60 mL/min [facility] CHLORIDE 109 mmol/L 99-110 [facility] NA 141 mmol/L 136-147 [facility] POTASSIUM 4.2 mmol/L 3.5-5.1 [facility] TCO2 30 mmol/L 20-33 [facility] ANION GAP 6.2 10.0-20.0 L [facility] CA 8.8 mg/dL 8.3-10.7 [facility] ALKALINE PHOS 85 U/L 45-117 [facility] TP 7.6 g/dL 6.0-7.8 [facility] ALB 3.7 g/dL 3.5-5.0 [facility] ESRD Dialysis patient Albumin reference range: 2.9-4.4 g/dL GL 3.9 g/dL 2.3-3.5 [facility] A/G 0.9 1.0-2.5 [facility] T. BILIRUBIN 0.4 mg/dL 0.1-1.1 [facility] [place] Total Bilirubin is n ot recommended forpatients undergoing treatment with eltrombopag (Promacta)due to the potential for falsely elevated results. ALTI 28 U/L 6-54 [facility] Patients taking Sulfasalazine and/or Sul fapyridine may havefalsely depressed ALT levels. Patients should be drawn forALT before the initial administration of either drug. AST 42 U/L 6-38 [facility] Patients taking Sulfasalazine and/or Sul fapyridine may havefalsely depressed AST levels. Patients should be drawn forAST before the initial administration of either drug. ID Date Data Source [id number] 03/30/2020 11:01:00 PM EST [facility] Name Value Range Interpretation Code Description Data Nuha rce(s) Supporting Document(s) PCP VISTA NEG NEGATIVE [facility] MINIMUM LEVEL OF DETECTION IS 25 ng/ml BENZODIAZEPINES NEG NEGATIVE [facility] al MINIMUM LEVEL OF DETECTION IS 200 ng/ml COCAINE VISTA NEG NEGATIVE [facility] MINIMUM LEVEL OF DETECTION IS 300 ng/ml AMPHETAMINES NEG NEGATIVE [facility] al MINIMUM LEVEL OF DETECTION IS 1000 ng/ml BARBITURATES NEG NEGATIVE [facility] al CUTOFF CONCENTRATION IS 200 ng/ml CANNABINOIDS NEG NEGATIVE [facility] al CUTOFF CONCENTRATION IS 50 ng/ml METHADONE VISTA NEG NEGATIVE [facility] al MINIMUM LEVEL OF DETECTION IS 300 ng/ml OPIATE VISTA NEG NEGATIVE [facility] MINIMUM DETECTION LEVEL IS 300 ng/ml ID Date Data Source [id number] 03/30/2020 10:49:00 PM EST [facility] Name Value Range Interpretation Code Description Data Nuha rce(s) Supporting Document(s) URINE COLOR Yellow [facility] UAPR Cloudy [facility] UGLU Negative NEGATIVE [facility] URINE BILIRUBIN Negative NEGATIVE [facility] UKET Negative NEGATIVE [facility] USG 1.032 1.010-1.025 [facility] UBLO Negative NEGATIVE [facility] UpH 6.0 5.0-8.0 [facility] UPRO 1+ Negative [facility] UUB 1.0 mg/dL 0.2-1.0 [facility] UNIT Negative Negative [facility] ULEU 1+ Negative [facility] ID Date Data Source [id number] 03/30/2020 10:49:00 PM EST [facility] Name Value Range Interpretation Code Description Data Nuha rce(s) Supporting Document(s) URINE RBC 3-5 RBCs/HPF NONE SEEN [facility] URINE WBC 6-10 WBCs/HPF NONE SEEN [facility] A URINE CULTURE HAS BEEN ADDED TO THIS [facility] URINE BACTERIA Moderate NONE SEEN [facility] l A URINE CULTURE HAS BEEN ADDED TO THIS [facility] URINE EPI. Many NONE SEEN [facility] URINE CRYSTAL FEW AMORPHOUS NONE SEEN [facility] ital ID Date Data Source [id number] 03/30/2020 10:49:00 PM EST [facility] Name Value Range Interpretation Code Description Data Nuha rce(s) Supporting Document(s) HCG QUAL URINE Negative Negative [facility] ID Date Data Source [id number] 04/02/2020 08:11:00 AM EST [facility] Performed at: RN - [facility] [address] [id number] Director: Macy Valdes MD, Phone: [phone] Name Value Range Interpretation Code Description Data Nuha rce(s) Supporting Document(s) HIV 4TH GEN. Non Reactive Non Reactive [facility] pital ID Date Data Source [id number] 03/31/2020 09:14:00 AM EST Leslie [facility] katja Physician DocumentationClaxton-Andriy Brooks edical CenterName: Rigoberto Hernandez: 39 yrsSex: FemaleDOB: 1980MRN: [id number] Date: 03/30/2020Time: 22:02Account#: [id number] MD:ED Physician Shalonda Alexander Summary:03/31/20 05:07Hospitalization OrderedHospitalization Status: Inpatient Admission qk1Rjhohpwg: HardyJoel saavedravier ih6Goskfdtu: Mental Health Unit xr3Mraagddly: Unchanged id9Fqsyece: an ongoing problem ld0Zruutspm: are unchanged jj9Jhrk Assignment: pe1Jrfehcoff- 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 dd6Ieqjq:- Medication Reconciliation dk2- SBAR dk2- Medication Reconciliation Form - 2nd Copy dk2HPI:03/900:02 This 39 yrs old White Female presents to ER via Police with cq4xihtimkuzg of Psych Problem.00:02 Patient brought in for psychiatric evaluation. Patient has no current dy3zsyebedczi. Patient denies any current suicidal or homicidalideation. [...] Negative for chills, fever. Eyes: Negative for yl8wnalfxbvs, vision loss. ENT: Negative for difficulty swallowing,difficulty [...] patient appears in no acute distress, alert, xc6vdqgu, comfortable, non-diaphoretic, non-toxic, well developed.00:07 Head/face: Exam [...] Mass Index 21.98 (54.50 kg, 157.48 cm) rp1Seupxcz Coma Score:00:07 Eye Response: spontaneous(4). Verbal Response: oriented(5). Motor nx4Jifeifim: obeys commands(6). Total: 15.MDM:03/822:10 Patient medically screened. dk:47 Data reviewed: nurses notes. ED course: Patient presented for ow2zimxjihoptf evaluation, medically cleared and evaluated by psychiatryfor [...] by psychiatry for admission for diagnosis of uj2kfsleszof disorder per Dr. Hardy on 39 status.03/822:12 [...] Tray (call dietary) :49 Order name: Urine ZhkvyfcGDDZ03/0906:53 Order name: COVID-19 MCCRIYYQ26/0822:12 Order name: Belongings List; Complete Time: 23:32 :12 Order name: Document Weight and Height for BMI; Complete Time: 23:32 :12 Order name: Mental Health Evaluation :12 Order name: Mental Health Level 3 :12 Order name: VS q shift; Complete Time: 23:32 :09 Order name: Medically Cleared for Eval by-Psychosocial, Head Of Maintenance dk2(.PSA); Complete Time: 01:08Dispensed Medications:00:13 Drug: Acetaminophen 650 mg [acetaminophen 325 mg tablet (2 tabs)] ck5Uhdgd: PO;Signatures:Dispatcher [employer] Lucie Falcon RN RN xm8YwplrixWing MD MD dk2 Name Value Range Interpretation Code Description Data Nuha rce(s) Supporting Document(s) ID Date Data Source [id number] 03/31/2020 09:14:00 AM EST [facility] Jeremy terName: Rigoberto AtkinsAge: 39 yrsSex: FemaleDOB: 1980MRN: [id number] Date: 03/30/2020Time: 22:02Account#: [id number] Hmlj9Jbzcxon MD:Diagnosis: Psychotic disorder with delusions due to [...] ongoing COVID-19 community spread or outside of [facility]? no Flu-like symptoms reported in the last [...] kk222:15 Presenting complaint: Patient brought to ER [facility]'s dept Marks nz3Abcmm. Reports that someone called and reported patient sitting in avehicle in a field since noon today. States that the patient hasn'tbeen making sense, reports that she did make suicidal statements onthe way to the hospital.Triage Assessment:22:07 General: Appears in no apparent distress, Behavior is cooperative, nk7ohjfyjrf. Sepsis Screening: (1)Signs/symptoms infection No. Pain:Denies pain. [...] threats or abuse. Denies injuries from another. gl8Ittgocgxbyu screening: No deficits noted. Offer of HIV testing :patient was previously offered screening. Fall Risk None identified.Assessment:22:36 General: see triage assessment . ok9Glormlrsjlyo:23:00 Narrative Pt is resting,staff are present, safety is maintained. cp212/0900:11 SAFE Act Report Not Completed. Intervention: Observation Level 3. hc1Hvuemk health consult is initiated at 00:11.00:46 Referral Information: Evaluation referral is generated by a police qo7vmkogi: [employer] Intern. The patient was referred for evaluation becauseDisorganized speech, confusion. Subjective: The patients chiefcomplaint is Pt presents to the ED with confusion and disorganizedspeech and thoughts via [employer] Intern. Pt reports that she dropped nabil off at work this morning in [place], started driving [employer], ran out of gas in a field, tried pushing her car and thenwaited in her car from noon - unknown time (was brought in tuidaz76:00), pt denies SI, HI, Hallucinations, self harm, [...] before around 10 years ago for SI. [facility]04[facility]57 DSM-V DX [place] I diagnosis: Psychotic D/O. cp205:04 Subjective: Delusions are denied, Hallucinations are denied. ff9Ozamijw's mood is elevated. Patient reports history of psychosis,Mental Health Admissions: 1, 10 years ago for SI.05:06 Patient reports history of Current Outpatient Mental Health Services: gr0Caqr. Living Environment: Family / Home Support: unknown [...] Dr Hardy [facility]Patient report is given to Pt will be escorted via PSA and M[facility]. LegalStatus: Patient's legal status will be Emergency: 9.39. Commitmentpapers are completed. [facility] Admission Criteria: The patient displaysdisorientation of such [...] significant dosage adjustments. Thepatient is not a stock clerk self service store or dependent. ColumbiaSuicide Severity Rating Scale: Suicidal Ideation Rating 0; Intensityof Ideations Rating 0; Suicidal Behavior Rating 0.Psych:03/822:38 Subjective: Delusions are denied, Hallucinations are denied Having qt6ujnitnvs of suicide. Denies suicidal plan. Patient reports [...] Index 21 .98 (54.50 kg, 157.48 cm) qf3Kzqapab Coma Score:00:07 Eye Response: spontaneous(4). Verbal Response: oriented(5). Motor jf3Dsdvzodm: obeys commands(6). Total: 15.ED Course:03/822:02 Patient arrived in ED. kk222:05 Triage completed. kk222:09 Arm band placed on Patient placed in exam room Patient notified of bd5uvio time.22:10 Wing Alexander MD is Attending Physician. [...] wd107:35 Sitter at bedside. Diet tray given. vs9Kdnkrxddzqgm Medications:00:13 Drug: Acetaminophen 650 mg [acetaminophen 325 mg tablet (2 tabs)] xp0Fqkei: PO;Outcome:05:07 Decision to Hospitalize by Provider. dk209:09 Dispo sition: Admitted to Psych wd109:09 Condition: stable.09:09 Instructed on need for admit.09:09 Discharge Assessment: Patient verbalized understanding of dispositioninstructions. Patient has no functional deficits.09:14 Patient left the ED. ud5Xfgclsnovu:Sofi Moran, RN RN or7Cnuubw, Lucie RN RN bv8BzvtsEyad sanchez RN RN ud0KnfhjdpWing bledsoe MD MD et5Migbguus, Risa sp4Upbv, Shinto, PSA PSA ft7Wwornhhljjb: (The following items were deleted from the [...] (finding) completed Current drinker of alcohol (finding) [facility] Tobacco use and exposure 04/12/2020 12:00:00 AM EST Never used co mpleted Never used [facility] Cigarettes smoked current (pack per day) - Reported 04/12/20 12:00:00 AM EST UNK completed [facility] Smoking 04/12/2020 12:00:00 AM EST Current every day smoker co mpleted Current every day smoker [facility] Smoking 04/12/2020 12:00:00 AM EST Unknown if ever smoked comp leted Unknown if ever smoked [facility] Vital Signs ID Date Data Source [id number] 04/15/2020 04:16:31 PM EST [facility] Name Value Range Interpretation Code Description Data Source(s) WEIGHT RECORDED 116.1 lb 116.1 lb [facility] Body height Measured 62 in 62 in [facility] TRANSFER FROM [facility] ID Date Data Source [id number] 04/09/2020 09:33:00 AM [facility] katja Name Value Range Interpretation Code Description Data Source(s) WEIGHT 52.2 kilos 52.2 [facility] HE[facility] 157.48 centimeters 157.48 centimeter [facility] WEIGHT 54.5 kilos 54.5 kilos [facility]IGHT 157.48 centimeters 157.48 centimeter [facility] Patient Treatment Plan of Care Planned Activity Planned Date Details Description Data Source (s) 24 HR Nicotine 0.875 MG/HR Transdermal Patch 04/15/2020 12:00:00 AM [facility] Citalopram 10 MG Oral Tablet 04/15/2020 12:00:00 AM [facility] Hydroxyzine Hydrochloride 50 MG Oral Tablet 04/14/2020 12:00:00 AM [facility] Nicotine 4 MG/ACTUAT Inhalant Solution 04/14/2020 12:00:00 AM [facility] Bariatric Fusion Oral Tablet Chewable 04/14/2020 12:00:00 AM [facility] acetaminophen (TYLENOL) tablet 650 mg 04/11/2020 10:25:10 PM [facility] Citalopram 20 MG Oral Tablet [facility] aripiprazole 2 MG Oral Tablet [facility] buspirone hydrochloride 15 MG Oral Tablet [facility] Clonidine Hydrochloride 0.3 MG Oral Tablet [facility] Glecaprevir-Pibrentasvir 100-40 MG Oral Tablet (MAVYRET) [facility] Fluoxetine 20 MG Oral Capsule [facility] Cyclobenzaprine hydrochloride 10 MG Oral Tablet [facility] aripiprazole 2 MG Oral Tablet [facility] Citalopram 40 MG Oral Tablet [facility]
== END 2021-02-03 01:20 | disposition left against medical advice (07) ==
LOC: M ED 19:20
DX: Z53.29 Procedure and treatment not carried out because of patient's decision for other reasons (principal)

== ENCOUNTER 2021-12-27 23:59 | Emergency (ER) | payer OTHER ==
[~2021-12-27] VITALS: Ht 154.9 cm; Wt 54.5 kg
[~2021-12-27 23:59] MED LIST changes: +DOXY-443 PO; -DOXY1CAP62 PO
[2021-12-28] VITALS: BP 173/104
[2021-12-28 00:39] LABS: BASO # 0.1 10^3/uL (0.0-0.2); BASO % 0.6 % (0.0-1.0); EOS # 0.3 10^3/uL (0.0-0.5); EOS % 2.7 % (0.0-3.0); HEMATOCRIT 29.6 % (36.0-47.0); HEMOGLOBIN 9.2 g/dl (12.0-15.5); LYMPH # 3.8 10^3/uL (1.5-5.0); MEAN CORPUSCULAR HEMOGLOBIN 23.8 pg (27.0-33.0); MEAN CORPUSCULAR HGB CONC 31.1 g/dl (32.0-36.5); MEAN CORPUSCULAR VOLUME 76.5 fl (80.0-96.0); MONO # 0.9 10^3/uL (0.0-0.8); NEUTROPHILS # 6.3 10^3/uL (1.5-8.5); NEUTROPHILS % 55.3 % (36.0-66.0); PLATELET COUNT, AUTOMATED 425 10^3/uL (150-450); RED BLOOD COUNT 3.87 10^6/uL (4.00-5.40); WHITE BLOOD COUNT 11.4 10^3/uL (4.0-10.0)
[2021-12-28 01:08] LABS: MB/CK RELATIVE INDEX 3.38 (< OR =4)
[2021-12-28 01:17] LABS: VENOUS BASE EXCESS -1.4 (-2.0-2.0); VENOUS HCO3 23.3 MEQ/L (23.0-27.0); VENOUS O2 SATURATION 92.1 % (60.0-80.0); VENOUS PARTIAL PRESSURE O2 64.1 mmHg (30.0-50.0); VENOUS PH 7.394 UNITS (7.330-7.430); VENOUS STANDARD HCO3 23.2 MEQ/L; VENOUS TOTAL CO2 24.5 MEQ/L (24.0-28.0)
[2021-12-28 01:26] LABS: ALBUMIN 3.5 GM/DL (3.2-5.2); ALT/SGPT 23 U/L (12-78); BILIRUBIN,DIRECT 0.1 MG/DL (0.0-0.2); BILIRUBIN,TOTAL 0.2 MG/DL (0.2-1.0); BLOOD UREA NITROGEN 10 MG/DL (7-18); CALCIUM LEVEL 8.5 MG/DL (8.5-10.1); CARBON DIOXIDE LEVEL 22 MEQ/L (21-32); CHLORIDE LEVEL 109 MEQ/L (98-107); FREE T4 0.85 NG/DL (0.76-1.46); GLOMERULAR FILTRATION RATE > 60.0 (>58); GLUCOSE, FASTING 103 MG/DL (70-100); LIPASE 331 U/L (73-393); POTASSIUM SERUM 4.4 MEQ/L (3.5-5.1); SODIUM LEVEL 139 MEQ/L (136-145); TOTAL PROTEIN 6.9 GM/DL (6.4-8.2)
[2021-12-28 03:44] LABS: CK-MB VALUE MASS 7.4 NG/ML (<3.6); MB/CK RELATIVE INDEX 3.57 (< OR =4)
== END 2021-12-28 03:31 | disposition left against medical advice (07) ==
LOC: M ED 23:59
DX: Z53.29 Procedure and treatment not carried out because of patient's decision for other reasons (principal)

== ENCOUNTER 2022-03-17 01:32 | Inpatient (IN) | payer OTHER ==
[~2022-03-17] VITALS: Ht 152.4 cm; Wt 54.0 kg
[2022-03-17 01:57] LABS: HEMATOCRIT 28.1 % (36.0-47.0); HEMOGLOBIN 8.4 g/dl (12.0-15.5); MEAN CORPUSCULAR HEMOGLOBIN 21.9 pg (27.0-33.0); MEAN CORPUSCULAR HGB CONC 29.9 g/dl (32.0-36.5); MEAN CORPUSCULAR VOLUME 73.4 fl (80.0-96.0); PLATELET COUNT, AUTOMATED 551 10^3/uL (150-450); RED BLOOD COUNT 3.83 10^6/uL (4.00-5.40); WHITE BLOOD COUNT 12.5 10^3/uL (4.0-10.0)
[2022-03-17 02:16] LABS: HCG, SERUM QUALITATIVE NEGATIVE (NEGATIVE)
[2022-03-17 02:28] LABS: ACETAMINOPHEN LEVEL < 2.0 UG/ML (10.0-20.0); ALBUMIN 3.8 G/DL (3.2-5.2); ALKALINE PHOSPHATASE 90 U/L (46-116); ALT/SGPT 32 U/L (7.0-40); AST/SGOT 48 U/L (<34); BILIRUBIN,DIRECT < 0.1 MG/DL (<0.4); BILIRUBIN,TOTAL 0.3 MG/DL (0.3-1.2); BLOOD UREA NITROGEN 20 MG/DL (9-23); CALCIUM LEVEL 8.5 MG/DL (8.5-10.1); CARBON DIOXIDE LEVEL 23 MMOL/L (20-31); CHLORIDE LEVEL 104 MMOL/L (98-107); CREATININE FOR GFR 0.91 MG/DL (0.55-1.30); ETHYL ALCOHOL (ETHANOL) 0.003 % (0.000-0.010); GLOMERULAR FILTRATION RATE > 60.0 (>58); GLUCOSE, FASTING 48 MG/DL (60-100); POTASSIUM SERUM 3.9 MMOL/L (3.5-5.1); SALICYLATE LEVEL < 3.0 MG/DL (<30); SODIUM LEVEL 137 MMOL/L (136-145); THYROID STIMULATING HORMONE 2.772 uIU/ML (0.55-4.78); TOTAL PROTEIN 7.1 G/DL (5.7-8.2)
[2022-03-17] MEDS ORDERED: LORazepam 2 MG TAB PO STA (03:11)
[2022-03-17 03:52] LABS: AMPHETAMINES LEVEL URINE POSITIVE (NEGATIVE); BARBITURATES URINE NEGATIVE (NEGATIVE); BENZODIAZEPINES URINE NEGATIVE (NEGATIVE); CANNABINOIDS URINE NEGATIVE (NEGATIVE); COCAINE METABOLITE URINE NEGATIVE (NEGATIVE); METHADONE URINE NEGATIVE (NEGATIVE); OPIATES URINE NEGATIVE (NEGATIVE); PHENCYCLIDINE URINE NEGATIVE (NEGATIVE)
[2022-03-17] MEDS ORDERED: HOME MED LIST COMPLETE! XX SCH (13:40)
[2022-03-17] MEDS ORDERED: MOM 30ML SUSPENSION UDC PO PRN (15:50)
[2022-03-17] MEDS ORDERED: hydrOXYzine 50 MG TAB PO PRN (15:50)
[2022-03-17] MEDS ORDERED: MAALOX 30 ML SUSP *UDC PO PRN (15:50)
[2022-03-17] MEDS: NICOTINE 21MG/24HR 1 EA TRANSDERMAL TD SCH (20:31)
[2022-03-17] MEDS: ACETAMINOPHEN TAB 650MG DOSE (2X325MG) PO PRN (20:33)
[2022-03-18 06:39] VITALS: BP 125/68
[2022-03-18] MEDS: NICOTINE 21MG/24HR 1 EA TRANSDERMAL TD SCH ×2 (09:00→12:59)
[2022-03-18 10:53] LABS: BASO # 0.1 10^3/uL (0.0-0.2); BASO % 0.6 % (0.0-1.0); EOS # 0.2 10^3/uL (0.0-0.5); EOS % 2.2 % (0.0-3.0); HEMATOCRIT 27.9 % (36.0-47.0); HEMOGLOBIN 8.3 g/dl (12.0-15.5); LYMPH # 1.5 10^3/uL (1.5-5.0); LYMPH % 18.2 % (24.0-44.0); MEAN CORPUSCULAR HEMOGLOBIN 21.8 pg (27.0-33.0); MEAN CORPUSCULAR HGB CONC 29.7 g/dl (32.0-36.5); MEAN CORPUSCULAR VOLUME 73.4 fl (80.0-96.0); MONO # 0.7 10^3/uL (0.0-0.8); MONO % 8.8 % (2.0-8.0); NEUTROPHILS # 5.8 10^3/uL (1.5-8.5); NEUTROPHILS % 69.8 % (36.0-66.0); PLATELET COUNT, AUTOMATED 458 10^3/uL (150-450); WHITE BLOOD COUNT 8.3 10^3/uL (4.0-10.0)
[2022-03-18 11:22] LABS: PERCENT SATURATION 1.7 % (13.2-45.0)
[2022-03-18 11:47] LABS: FERRITIN 5.2 NG/ML (7.3-270.7)
[2022-03-18 12:10] LABS: FOLATE 14.49 NG/ML (>5.4)
[2022-03-18] MEDS: FERROUS SULFATE 325MG TAB PO SCH (12:58)
[2022-03-18] MEDS: CYANOCOBALAMIN 500 MCG TAB PO SCH (12:59)
[2022-03-18 16:29] VITALS: BP 150/94
[2022-03-18] MEDS: ACETAMINOPHEN TAB 650MG DOSE (2X325MG) PO PRN (20:07)
[2022-03-18] MEDS: traZODone 50 MG TAB PO PRN (20:07)
[2022-03-18] MEDS ORDERED: OLANZapine ORAL DISINTEGRATING TAB 5MG PO PRN (20:20)
[2022-03-19 06:39] VITALS: BP 141/74
[2022-03-19] MEDS: NICOTINE 21MG/24HR 1 EA TRANSDERMAL TD SCH (09:45)
[2022-03-19] MEDS: FERROUS SULFATE 325MG TAB PO SCH (09:45)
[2022-03-19] MEDS: CYANOCOBALAMIN 500 MCG TAB PO SCH (09:45)
[2022-03-19] MEDS: SERTRALINE HCL 25 MG TABLET PO SCH (10:32)
[2022-03-19] MEDS: buPROPion **XL** TABLET 150MG (WELLBUTRIN XL) PO SCH (10:32)
[2022-03-19] MEDS: cloNIDine 0.1MG TABLET PO SCH (10:32)
[2022-03-19 16:56] VITALS: BP 134/83
[2022-03-19] MEDS: traZODone 50 MG TAB PO PRN (20:03)
[2022-03-20] MEDS: FERROUS SULFATE 325MG TAB PO SCH (09:31)
[2022-03-20] MEDS: buPROPion **XL** TABLET 150MG (WELLBUTRIN XL) PO SCH (09:31)
[2022-03-20] MEDS: SERTRALINE HCL 25 MG TABLET PO SCH (09:31)
[2022-03-20] MEDS: NICOTINE 21MG/24HR 1 EA TRANSDERMAL TD SCH (09:31)
[2022-03-20] MEDS: CYANOCOBALAMIN 500 MCG TAB PO SCH (09:31)
[2022-03-20] MEDS: cloNIDine 0.1MG TABLET PO SCH (09:34)
[2022-03-20] MEDS: ACETAMINOPHEN TAB 650MG DOSE (2X325MG) PO PRN (10:55)
[2022-03-20] MEDS ORDERED: NICO21PAT TD (12:07)
[2022-03-20] MEDS ORDERED: VITA500T40 PO (12:07)
[2022-03-20] MEDS ORDERED: BUPR150T12 PO (12:07)
[2022-03-20] MEDS ORDERED: SERT-141 PO (12:07)
[2022-03-20] MEDS ORDERED: FERR1TAB8 PO (12:07)
[2022-03-20] MEDS ORDERED: CLONI1TA PO (12:07)
[2022-03-20 18:14] VITALS: BP 118/68
[2022-03-21] MEDS ORDERED: SERTRALINE HCL 50 MG TAB PO SCH (09:00)
[2022-03-21] MEDS: NICOTINE 21MG/24HR 1 EA TRANSDERMAL TD SCH (09:00)
[2022-03-21] MEDS: CYANOCOBALAMIN 500 MCG TAB PO SCH (09:10)
[2022-03-21] MEDS: FERROUS SULFATE 325MG TAB PO SCH (09:10)
[2022-03-21 09:11] VITALS: BP 112/76
[2022-03-21] MEDS: buPROPion **XL** TABLET 150MG (WELLBUTRIN XL) PO SCH (09:11)
[2022-03-21] MEDS: cloNIDine 0.1MG TABLET PO SCH (09:11)
[2022-03-21] MEDS ORDERED: INFLUENZA QUADRIVALENT PF VACCINE 0.5ML SYRINGE IM.IMMUN ONE (13:00)
== END 2022-03-21 15:09 | disposition home or self-care (01) | DRG 776 ==
LOC: M ED 01:32 → M ED INP 15:47 → M PSY 20:21
PROVIDERS: ADMIT Student in an Organized Health Care Education/Training Program; ATTEND Psychiatry & Neurology Psychiatry
DX: F15.959 Other stimulant use, unspecified with stimulant-induced psychotic disorder, unspecified (principal); R45.851 Suicidal ideations; D50.9 Iron deficiency anemia, unspecified; E53.8 Deficiency of other specified B group vitamins; F17.200 Nicotine dependence, unspecified, uncomplicated; F15.93 Other stimulant use, unspecified with withdrawal; F43.10 Post-traumatic stress disorder, unspecified; Z91.410 Personal history of adult physical and sexual abuse; Z20.822 Contact with and (suspected) exposure to COVID-19; Z63.0 Problems in relationship with spouse or partner

== ENCOUNTER 2022-04-10 15:49 | Inpatient (IN) | payer OTHER ==
[~2022-04-10] VITALS: Ht 154.9 cm; Wt 59.0 kg
[~2022-04-10 15:49] MED LIST changes: +BUPR150T12 PO; +CLONI1TA PO; +FERR1TAB8 PO; +NICO21PAT TD; +SERT-141 PO; +VITA500T40 PO
[2022-04-10 23:36] LABS: BASO # 0.1 10^3/uL (0.0-0.2); BASO % 0.6 % (0.0-1.0); EOS # 0.4 10^3/uL (0.0-0.5); EOS % 3.5 % (0.0-3.0); HEMATOCRIT 26.7 % (36.0-47.0); HEMOGLOBIN 7.8 g/dl (12.0-15.5); LYMPH # 3.3 10^3/uL (1.5-5.0); LYMPH % 26.7 % (24.0-44.0); MEAN CORPUSCULAR HEMOGLOBIN 21.3 pg (27.0-33.0); MEAN CORPUSCULAR HGB CONC 29.2 g/dl (32.0-36.5); MEAN CORPUSCULAR VOLUME 72.8 fl (80.0-96.0); MONO # 1.1 10^3/uL (0.0-0.8); MONO % 8.8 % (2.0-8.0); NEUTROPHILS # 7.3 10^3/uL (1.5-8.5); NEUTROPHILS % 59.5 % (36.0-66.0); PLATELET COUNT, AUTOMATED 398 10^3/uL (150-450); RED BLOOD COUNT 3.67 10^6/uL (4.00-5.40); WHITE BLOOD COUNT 12.3 10^3/uL (4.0-10.0)
[2022-04-10] MEDS ORDERED: ACETAMINOPHEN 500 MG TAB PO ONE (23:45)
[2022-04-10 23:59] LABS: CK-MB VALUE MASS 3.6 NG/ML (<3.6)
[2022-04-11] VITALS (12 sets, daily range): BP systolic 136–162; BP diastolic 70–106
[2022-04-11 00:08] LABS: BLOOD UREA NITROGEN 14 MG/DL (9-23); CALCIUM LEVEL 8.1 MG/DL (8.5-10.1); CARBON DIOXIDE LEVEL 20 MMOL/L (20-31); CHLORIDE LEVEL 105 MMOL/L (98-107); CPK CREATINE PHOSPHOKINASE 231 U/L (34-145); CREATININE FOR GFR 0.63 MG/DL (0.55-1.30); GLOMERULAR FILTRATION RATE > 60.0 (>58); GLUCOSE, FASTING 110 MG/DL (60-100); MB/CK RELATIVE INDEX 1.55 (< OR =4); SODIUM LEVEL 137 MMOL/L (136-145)
[2022-04-11] MEDS ORDERED: NS 1,000 ML IV ONE (00:40)
[2022-04-11] MEDS ORDERED: ISOVUE-370 76% 100ML VIAL As Ordered ONE (01:39)
[2022-04-11 01:44] LABS: POTASSIUM SERUM 4.2 MMOL/L (3.5-5.1)
[2022-04-11 01:51] LABS: CK-MB VALUE MASS 2.9 NG/ML (<3.6)
[2022-04-11 01:52] LABS: IRON (FE) 11 UG/DL (50-170); TOTAL IRON BINDING CAPACITY 369 UG/DL (250-425)
[2022-04-11 01:53] LABS: CPK CREATINE PHOSPHOKINASE 175 U/L (34-145); MB/CK RELATIVE INDEX 1.65 (< OR =4)
[2022-04-11 01:56] LABS: FERRITIN 3.9 NG/ML (7.3-270.7)
[2022-04-11] MEDS ORDERED: FERR1TAB8 PO (02:15)
[2022-04-11] MEDS ORDERED: SUBO8MIS SL (02:15)
[2022-04-11] MEDS ORDERED: AZITHROMYCIN 250MG TABLET PO ONE (02:45)
[2022-04-11] MEDS ORDERED: cefTRIAXone SOD 1 GM in D5W MINI-BAG PLUS 50 ML IV ONE (02:45)
[2022-04-11] MEDS ORDERED: FUROSEMIDE 20MG/2ML VIAL IV ONE (03:00)
[2022-04-11 03:31] LABS: HCG, SERUM QUALITATIVE NEGATIVE (NEGATIVE)
[2022-04-11] MEDS ORDERED: guaiFENesin SYRUP 200MG 10ML UDC PO PRN (03:40)
[2022-04-11 05:12] LABS: LIPASE 23 U/L (12-53)
[2022-04-11 05:14] LABS: ALBUMIN 2.5 G/DL (3.2-5.2); ALKALINE PHOSPHATASE 59 U/L (46-116); ALT/SGPT 16 U/L (7.0-40); AST/SGOT 26 U/L (<34); BILIRUBIN,DIRECT < 0.1 MG/DL (<0.4); BILIRUBIN,TOTAL 0.2 MG/DL (0.3-1.2); TOTAL PROTEIN 5.3 G/DL (5.7-8.2)
[2022-04-11] MEDS ORDERED: AMPICILLIN SOD/SULBACTAM SOD 3 GM in D5W MINI-BAG PLUS 100 ML IV SCH (06:00)
[2022-04-11] MEDS ORDERED: HOME MED LIST COMPLETE! XX SCH (08:40)
[2022-04-11] MEDS: FERROUS SULFATE 325MG TAB PO SCH (09:20)
[2022-04-11 09:39] LABS: BASO # 0.1 10^3/uL (0.0-0.2); BASO % 0.5 % (0.0-1.0); EOS # 0.5 10^3/uL (0.0-0.5); EOS % 3.6 % (0.0-3.0); LYMPH # 2.3 10^3/uL (1.5-5.0); LYMPH % 16.7 % (24.0-44.0); MEAN CORPUSCULAR HEMOGLOBIN 22.2 pg (27.0-33.0); MEAN CORPUSCULAR HGB CONC 29.7 g/dl (32.0-36.5); MEAN CORPUSCULAR VOLUME 74.8 fl (80.0-96.0); MONO # 1.1 10^3/uL (0.0-0.8); MONO % 7.7 % (2.0-8.0); NEUTROPHILS # 9.7 10^3/uL (1.5-8.5); NEUTROPHILS % 70.7 % (36.0-66.0); PLATELET COUNT, AUTOMATED 392 10^3/uL (150-450); RED BLOOD COUNT 4.41 10^6/uL (4.00-5.40); WHITE BLOOD COUNT 13.8 10^3/uL (4.0-10.0)
[2022-04-11 09:42] LABS: MAGNESIUM LEVEL 1.5 MG/DL (1.8-2.4)
[2022-04-11 09:48] LABS: INR 1.05; PROTHROMBIN TIME 13.9 SECONDS (12.5-14.5)
[2022-04-11 09:49] LABS: PARTIAL THROMBOPLASTIN TIME 30.9 SECONDS (24.8-34.2)
[2022-04-11 09:50] LABS: HEMOGLOBIN 9.8 g/dl (12.0-15.5)
[2022-04-11 09:55] LABS: ALBUMIN 2.8 G/DL (3.2-5.2); ALKALINE PHOSPHATASE 68 U/L (46-116); ALT/SGPT 18 U/L (7.0-40); AST/SGOT 29 U/L (<34); BILIRUBIN,TOTAL 0.8 MG/DL (0.3-1.2); BLOOD UREA NITROGEN 13 MG/DL (9-23); CALCIUM LEVEL 8.5 MG/DL (8.5-10.1); CARBON DIOXIDE LEVEL 27 MMOL/L (20-31); CHLORIDE LEVEL 104 MMOL/L (98-107); CREATININE FOR GFR 0.67 MG/DL (0.55-1.30); GLOMERULAR FILTRATION RATE > 60.0 (>58); GLUCOSE, FASTING 105 MG/DL (60-100); POTASSIUM SERUM 4.4 MMOL/L (3.5-5.1); SODIUM LEVEL 138 MMOL/L (136-145); THYROID STIMULATING HORMONE 8.304 uIU/ML (0.55-4.78)
[2022-04-11] MEDS ORDERED: FUROSEMIDE 40MG/4ML VIAL IV ONE (10:10)
[2022-04-11 10:18] LABS: HEMOGLOBIN A1c 5.2 % (4.0-6.0)
[2022-04-11] MEDS: POTASSIUM CHLORIDE 10MEQ SR TABLET PO SCH (10:36)
[2022-04-11 10:53] LABS: FREE T4 0.96 NG/DL (0.89-1.76)
[2022-04-11] MEDS ORDERED: MAG SULF 1GM/100ML (MAG RUN) 1 GM in IV 1 EA IV ONE (11:00)
[2022-04-11] MEDS: PANTOPRAZOLE 40MG VIAL IV SCH ×2 (11:27→21:00)
[2022-04-11] MEDS ORDERED: FERRIC CARBOXYMALTOSE INJ 750 MG, VIAL MATE ADAPTER 1 EACH in NS 250 ML IV ONE (12:00)
[2022-04-11] MEDS: ACETAMINOPHEN TAB 650MG DOSE (2X325MG) PO PRN ×2 (13:00→20:18)
[2022-04-11] MEDS ORDERED: FUROSEMIDE 20 MG TAB PO SCH (17:00)
[2022-04-11] MEDS: FUROSEMIDE 40MG/4ML VIAL IV SCH (18:15)
[2022-04-11] MEDS: cefTRIAXone SOD 1 GM in D5W MINI-BAG PLUS 50 ML IV SCH (21:00)
[2022-04-11] MEDS: BACITRACIN OINTMENT 30GM TUBE TOP SCH (21:01)
[2022-04-11] MEDS ORDERED: VANCOMYCIN HCL 750 MG, VIAL MATE ADAPTER 1 EACH in D5W 250 ML IV ONE (22:00)
[2022-04-11] MEDS ORDERED: VANCOMYCIN HCL 500 MG in D5W MINI-BAG PLUS 100 ML IV ONE (23:00)
[2022-04-12] VITALS (7 sets, daily range): BP systolic 130–157; BP diastolic 78–95
[2022-04-12 00:57] LABS: AMPHETAMINES LEVEL URINE NEGATIVE (NEGATIVE); BARBITURATES URINE NEGATIVE (NEGATIVE); BENZODIAZEPINES URINE NEGATIVE (NEGATIVE); COCAINE METABOLITE URINE NEGATIVE (NEGATIVE); METHADONE URINE NEGATIVE (NEGATIVE); OPIATES URINE NEGATIVE (NEGATIVE); PHENCYCLIDINE URINE NEGATIVE (NEGATIVE)
[2022-04-12 00:58] LABS: CANNABINOIDS URINE NEGATIVE (NEGATIVE)
[2022-04-12 04:32] LABS: BASO # 0.1 10^3/uL (0.0-0.2); BASO % 0.6 % (0.0-1.0); EOS # 0.6 10^3/uL (0.0-0.5); EOS % 4.5 % (0.0-3.0); HEMATOCRIT 34.3 % (36.0-47.0); HEMOGLOBIN 10.4 g/dl (12.0-15.5); LYMPH # 2.2 10^3/uL (1.5-5.0); LYMPH % 17.4 % (24.0-44.0); MEAN CORPUSCULAR HEMOGLOBIN 22.3 pg (27.0-33.0); MEAN CORPUSCULAR HGB CONC 30.3 g/dl (32.0-36.5); MEAN CORPUSCULAR VOLUME 73.6 fl (80.0-96.0); MONO # 1.3 10^3/uL (0.0-0.8); NEUTROPHILS # 8.3 10^3/uL (1.5-8.5); NEUTROPHILS % 66.6 % (36.0-66.0); PLATELET COUNT, AUTOMATED 379 10^3/uL (150-450); RED BLOOD COUNT 4.66 10^6/uL (4.00-5.40); WHITE BLOOD COUNT 12.5 10^3/uL (4.0-10.0)
[2022-04-12 04:56] LABS: MAGNESIUM LEVEL 1.5 MG/DL (1.8-2.4)
[2022-04-12 04:57] LABS: BLOOD UREA NITROGEN 19 MG/DL (9-23); CALCIUM LEVEL 8.4 MG/DL (8.5-10.1); CARBON DIOXIDE LEVEL 28 MMOL/L (20-31); CHLORIDE LEVEL 105 MMOL/L (98-107); CREATININE FOR GFR 0.62 MG/DL (0.55-1.30); GLOMERULAR FILTRATION RATE > 60.0 (>58); GLUCOSE, FASTING 93 MG/DL (60-100); SODIUM LEVEL 141 MMOL/L (136-145)
[2022-04-12] MEDS: VANCOMYCIN HCL 1,000 MG, VIAL MATE ADAPTER 1 EACH in D5W 250 ML IV SCH ×2 (05:14→15:06)
[2022-04-12] MEDS ORDERED: MAG SULF 1GM/100ML (MAG RUN) 1 GM in IV 1 EA IV ONE (06:15)
[2022-04-12] MEDS: FERROUS SULFATE 325MG TAB PO SCH (09:00)
[2022-04-12] MEDS: LOSARTAN 25 MG TAB PO SCH (09:00)
[2022-04-12] MEDS ORDERED: INFLUENZA QUADRIVALENT PF VACCINE 0.5ML SYRINGE IM.IMMUN ONE (09:00)
[2022-04-12] MEDS: METOPROLOL SUCC *XL* 25MG TAB (TopROL *XL*) PO SCH (09:00)
[2022-04-12] MEDS: PANTOPRAZOLE 40MG VIAL IV SCH ×2 (09:48→20:52)
[2022-04-12] MEDS: AZITHROMYCIN 250MG TABLET PO SCH (09:49)
[2022-04-12] MEDS: FUROSEMIDE 40MG/4ML VIAL IV SCH ×2 (09:49→16:36)
[2022-04-12] MEDS: POTASSIUM CHLORIDE 10MEQ SR TABLET PO SCH (09:49)
[2022-04-12] MEDS: BACITRACIN OINTMENT 30GM TUBE TOP SCH ×3 (09:50→20:58)
[2022-04-12] MEDS ORDERED: CETACAINE SPRAY 5GM As Ordered ONE (16:09)
[2022-04-12] MEDS ORDERED: LIDOCAINE VISCOUS 2% SOLN 15ML UDC As Ordered ONE (16:09)
[2022-04-12] MEDS ORDERED: LIDOCAINE 2% 100MG/5ML SDV (FOR ANES.) As Ordered ONE (16:57)
[2022-04-12] MEDS ORDERED: fentaNYL 100 MCG/2 ML INJECTION As Ordered ONE (16:57)
[2022-04-12] MEDS ORDERED: MIDAZOLAM INJ 2MG/2ML VIAL (J2250 PER 1MG) As Ordered ONE (16:57)
[2022-04-12] MEDS ORDERED: propofoL 200 MG/20 ML VIAL As Ordered ONE (16:57)
[2022-04-12] MEDS: cefTRIAXone SOD 1 GM in D5W MINI-BAG PLUS 50 ML IV SCH (20:52)
[2022-04-12] MEDS: ACETAMINOPHEN TAB 650MG DOSE (2X325MG) PO PRN (21:04)
[2022-04-12] MEDS ORDERED: RAMELTEON 8 MG TAB (ROZEREM) PO ONE (21:55)
[2022-04-12] MEDS ORDERED: GLUCOSE 4GM CHEW TABLET PO PRN (22:10)
[2022-04-12] MEDS ORDERED: DEXTROSE 50% 50ML SYRINGE IV PRN (22:10)
[2022-04-12] MEDS ORDERED: DEXTROSE 50% 50ML SYRINGE As Ordered ONE (22:10)
[2022-04-12] MEDS ORDERED: GLUCAGON INJ 1MG VIAL SC PRN (22:10)
[2022-04-13 00:13] VITALS: BP 133/73
[2022-04-13 04:00] VITALS: BP 132/68
[2022-04-13 05:04] LABS: HEMATOCRIT 35.5 % (36.0-47.0); HEMOGLOBIN 10.7 g/dl (12.0-15.5); MEAN CORPUSCULAR HEMOGLOBIN 22.6 pg (27.0-33.0); MEAN CORPUSCULAR HGB CONC 30.1 g/dl (32.0-36.5); MEAN CORPUSCULAR VOLUME 74.9 fl (80.0-96.0); PLATELET COUNT, AUTOMATED 396 10^3/uL (150-450); RED BLOOD COUNT 4.74 10^6/uL (4.00-5.40); WHITE BLOOD COUNT 13.7 10^3/uL (4.0-10.0)
[2022-04-13 05:34] LABS: MAGNESIUM LEVEL 1.5 MG/DL (1.8-2.4)
[2022-04-13 05:36] LABS: BLOOD UREA NITROGEN 16 MG/DL (9-23); CALCIUM LEVEL 8.8 MG/DL (8.5-10.1); CARBON DIOXIDE LEVEL 26 MMOL/L (20-31); CHLORIDE LEVEL 103 MMOL/L (98-107); CREATININE FOR GFR 0.68 MG/DL (0.55-1.30); GLOMERULAR FILTRATION RATE > 60.0 (>58); GLUCOSE, FASTING 92 MG/DL (60-100); SODIUM LEVEL 139 MMOL/L (136-145)
[2022-04-13 05:38] LABS: HEPATITIS B SURFACE ANTIBODY NEGATIVE (POSITIVE)
[2022-04-13 06:03] LABS: HIV 1&2 SCREEN CENTAUR NEGATIVE (NEGATIVE)
[2022-04-13 07:51] VITALS: BP 135/78
[2022-04-13] MEDS ORDERED: MAG SULF 1GM/100ML (MAG RUN) 1 GM in IV 1 EA IV ONE (08:00)
[2022-04-13] MEDS: PANTOPRAZOLE 40MG VIAL IV SCH (08:50)
[2022-04-13] MEDS: FUROSEMIDE 40MG/4ML VIAL IV SCH (08:50)
[2022-04-13] MEDS: BACITRACIN OINTMENT 30GM TUBE TOP SCH (08:51)
[2022-04-13] MEDS: POTASSIUM CHLORIDE 10MEQ SR TABLET PO SCH ×2 (09:00→10:25)
[2022-04-13] MEDS: AZITHROMYCIN 250MG TABLET PO SCH ×2 (09:00→10:25)
[2022-04-13] MEDS: METOPROLOL SUCC *XL* 25MG TAB (TopROL *XL*) PO SCH ×2 (09:00→10:24)
[2022-04-13] MEDS: FERROUS SULFATE 325MG TAB PO SCH ×2 (09:00→10:24)
[2022-04-13] MEDS: LOSARTAN 25 MG TAB PO SCH ×2 (09:00→10:25)
[2022-04-13 10:23] VITALS: BP 136/76
[2022-04-13] MEDS: ACETAMINOPHEN TAB 650MG DOSE (2X325MG) PO PRN (10:24)
[2022-04-13 10:25] VITALS: BP 136/76
[2022-04-13] MEDS ORDERED: FURO20TA2 PO (11:34)
[2022-04-13] MEDS ORDERED: COZA1TAB PO (11:34)
[2022-04-13] MEDS ORDERED: METO1TAB32 PO (11:34)
[2022-04-13] MEDS ORDERED: AZIT-12 PO (11:34)
[2022-04-13] MEDS ORDERED: CEFP200T PO (11:34)
[2022-04-13] MEDS ORDERED: RAMELTEON 8 MG TAB (ROZEREM) PO SCH (21:00)
[2022-04-14 15:08] LABS: HEPATITIS A IgG TOTAL Positive (Negative); HEPATITIS C QUANTITATION HCV Not Detected IU/mL (.)
== END 2022-04-13 13:46 | disposition home or self-care (01) | DRG 139 ==
LOC: M ED 15:49 → M ED INP 04-11 03:40 → M MSPAV 04-11 18:08 → M ICU 04-11 20:22
PROVIDERS: ADMIT Family Medicine; ATTEND Internal Medicine
PROC: B246ZZZ Ultrasonography of Right and Left Heart (ICD-10-PCS; principal; 2022-04-11)
PROC: B246ZZ4 Ultrasonography of Right and Left Heart, Transesophageal (ICD-10-PCS; 2022-04-12)
DX: J18.9 Pneumonia, unspecified organism (principal); J96.01 Acute respiratory failure with hypoxia; I50.43 Acute on chronic combined systolic (congestive) and diastolic (congestive) heart failure; J90 Pleural effusion, not elsewhere classified; E83.42 Hypomagnesemia; D50.9 Iron deficiency anemia, unspecified; F15.10 Other stimulant abuse, uncomplicated; F32.A Depression, unspecified; E03.9 Hypothyroidism, unspecified; E11.9 Type 2 diabetes mellitus without complications; E78.5 Hyperlipidemia, unspecified; F41.9 Anxiety disorder, unspecified; D72.829 Elevated white blood cell count, unspecified; Z79.899 Other long term (current) drug therapy; Z98.84 Bariatric surgery status; Z79.1 Long term (current) use of non-steroidal anti-inflammatories (NSAID)

== ENCOUNTER 2022-04-30 11:12 | Emergency (ER) | payer OTHER ==
[~2022-04-30] VITALS: Ht 154.9 cm; Wt 61.1 kg
[~2022-04-30 11:12] MED LIST changes: +AZIT-12 PO; +CEFP200T PO; +COZA1TAB PO; +FURO20TA2 PO; +METO1TAB32 PO; +SUBO8MIS SL
[2022-04-30 11:13] VITALS: BP 139/77
[2022-04-30] MEDS ORDERED: BUPR1FIL (11:30)
== END 2022-04-30 13:17 | disposition left against medical advice (07) ==
LOC: M ED 11:12
DX: Z53.29 Procedure and treatment not carried out because of patient's decision for other reasons (principal); I25.10 Atherosclerotic heart disease of native coronary artery without angina pectoris; I50.9 Heart failure, unspecified; E78.5 Hyperlipidemia, unspecified; E03.9 Hypothyroidism, unspecified; F17.210 Nicotine dependence, cigarettes, uncomplicated; Z79.899 Other long term (current) drug therapy

== ENCOUNTER → 2022-05-09 | Outpatient (REF) | payer OTHER ==
[2022-05-09 17:29] LABS: BASO # 0.1 10^3/uL (0.0-0.2); BASO % 0.7 % (0.0-1.0); EOS # 1.5 10^3/uL (0.0-0.5); EOS % 17.8 % (0.0-3.0); HEMOGLOBIN 13.3 g/dl (12.0-15.5); LYMPH # 2.4 10^3/uL (1.5-5.0); MEAN CORPUSCULAR HEMOGLOBIN 25.8 pg (27.0-33.0); MEAN CORPUSCULAR HGB CONC 30.9 g/dl (32.0-36.5); MEAN CORPUSCULAR VOLUME 83.3 fl (80.0-96.0); MONO # 0.8 10^3/uL (0.0-0.8); MONO % 9.1 % (2.0-8.0); NEUTROPHILS # 3.8 10^3/uL (1.5-8.5); PLATELET COUNT, AUTOMATED 237 10^3/uL (150-450); RED BLOOD COUNT 5.16 10^6/uL (4.00-5.40); WHITE BLOOD COUNT 8.5 10^3/uL (4.0-10.0)
[2022-05-09 17:32] LABS: MAGNESIUM LEVEL 1.6 MG/DL (1.8-2.4)
[2022-05-09 17:34] LABS: IRON (FE) 145 UG/DL (50-170); TOTAL IRON BINDING CAPACITY 315 UG/DL (250-425)
[2022-05-09 17:47] LABS: BLOOD UREA NITROGEN 15 MG/DL (9-23); CALCIUM LEVEL 8.9 MG/DL (8.5-10.1); CARBON DIOXIDE LEVEL 30 MMOL/L (20-31); CHLORIDE LEVEL 99 MMOL/L (98-107); CREATININE FOR GFR 0.83 MG/DL (0.55-1.30); FOLATE 20.6 NG/ML (>5.4); GLOMERULAR FILTRATION RATE > 60.0 (>58); GLUCOSE, FASTING 81 MG/DL (60-100); POTASSIUM SERUM 5.1 MMOL/L (3.5-5.1); SODIUM LEVEL 136 MMOL/L (136-145); VITAMIN B12 LEVEL 279 PG/ML (211-911)
== END ==
LOC: M LAB REF 16:23
PROVIDERS: ATTEND Family Medicine Addiction Medicine
DX: D64.9 Anemia, unspecified (principal); E83.42 Hypomagnesemia

== ENCOUNTER → 2022-08-17 | Outpatient (REF) | payer OTHER ==
[2022-08-17 15:56] LABS: THYROID STIMULATING HORMONE 5.663 uIU/ML (0.55-4.78)
== END ==
LOC: M LAB REF 13:19
PROVIDERS: ATTEND Family Medicine Addiction Medicine
DX: R53.83 Other fatigue (principal); D50.9 Iron deficiency anemia, unspecified

== ENCOUNTER → 2022-09-22 | Outpatient (CLI) | payer OTHER ==
[2022-09-22 12:28] LABS: HEMATOCRIT 37.7 % (36.0-47.0); MEAN CORPUSCULAR HEMOGLOBIN 30.4 pg (27.0-33.0); MEAN CORPUSCULAR HGB CONC 34.5 g/dl (32.0-36.5); MEAN CORPUSCULAR VOLUME 88.3 fl (80.0-96.0); PLATELET COUNT, AUTOMATED 269 10^3/uL (150-450); RED BLOOD COUNT 4.27 10^6/uL (4.00-5.40); WHITE BLOOD COUNT 6.3 10^3/uL (4.0-10.0)
[2022-09-22 12:53] LABS: ALBUMIN 3.9 G/DL (3.2-5.2); ALKALINE PHOSPHATASE 61 U/L (46-116); ALT/SGPT 17 U/L (7.0-40); AST/SGOT 19 U/L (<34); BILIRUBIN,TOTAL 0.4 MG/DL (0.3-1.2); BLOOD UREA NITROGEN 14 MG/DL (9-23); CALCIUM LEVEL 8.9 MG/DL (8.5-10.1); CARBON DIOXIDE LEVEL 30 MMOL/L (20-31); CHLORIDE LEVEL 103 MMOL/L (98-107); CREATININE FOR GFR 0.69 MG/DL (0.55-1.30); GLOMERULAR FILTRATION RATE > 60.0 (>58); GLUCOSE, FASTING 107 MG/DL (60-100); POTASSIUM SERUM 4.8 MMOL/L (3.5-5.1); SODIUM LEVEL 137 MMOL/L (136-145); TOTAL PROTEIN 6.9 G/DL (5.7-8.2)
[2022-09-22 13:02] LABS: HCG, SERUM QUALITATIVE NEGATIVE (NEGATIVE)
[2022-09-22 13:07] LABS: HEPATITIS B SURFACE ANTIGEN NEGATIVE (NEGATIVE)
[2022-09-22 13:20] LABS: HIV 1&2 SCREEN NEGATIVE (NEGATIVE)
[2022-09-22 13:40] LABS: HEPATITIS C VIRUS ABY INDEX > 11.0 INDEX (<0.8)
[2022-09-22 14:06] LABS: GC DNA AMPLIFICATION NEGATIVE (NEGATIVE)
== END ==
LOC: M LAB 11:46
PROVIDERS: ATTEND Family Medicine
DX: F11.20 Opioid dependence, uncomplicated (principal)

== ENCOUNTER 2022-12-28 09:25 | Day surgery (SDC) | payer OTHER ==
[~2022-12-28] VITALS: Ht 154.9 cm; Wt 62.6 kg
[~2022-12-28 09:25] MED LIST changes: +AMPICILLIN SOD/SULBACTAM SOD 3 GM in D5W MINI-BAG PLUS 100 ML IV ONE; -COZA1TAB PO; +LIDOCAINE 2% 100MG/5ML SDV (FOR ANES.) As Ordered ONE; +LIDOCAINE 2% W/ EPINEPHRINE 1.7 ML DENTAL INJ As Ordered ONE; +LOSA-527 PO; +MAGN400T2 PO; +MIDAZOLAM INJ 2MG/2ML VIAL As Ordered ONE; +ONDANSETRON 4MG 2ML VIAL As Ordered ONE; +ROCURONIUM BROMIDE 50MG/5ML VIAL As Ordered ONE; +SUGAMMADEX SODIUM 500 MG/5 ML VIAL (BRIDION) As Ordered ONE; +fentaNYL 100 MCG/2 ML INJECTION As Ordered ONE; +propofoL 200 MG/20 ML VIAL As Ordered ONE
[2022-12-28] MEDS ORDERED: LR 1,000 ML IV SCH ×2 (10:20→13:25)
[2022-12-28] MEDS ORDERED: ONDANSETRON 4MG 2ML VIAL IV PRN (13:25)
[2022-12-28] MEDS ORDERED: HYDROMORPHONE HCL 0.5 MG/ 0.5 ML SYRINGE IV PRN (13:25)
[2022-12-28] MEDS ORDERED: oxyCODONE 5MG TAB PO PRN (13:25)
[2022-12-28] MEDS: fentaNYL 100 MCG/2 ML INJECTION IV PRN ×4 (13:56→14:39)
[2022-12-28] MEDS ORDERED: LABETALOL 100MG/20ML VIAL IV ONE (14:25)
[2022-12-28] MEDS ORDERED: hydrALAZINE 20MG/ML 1ML VIAL IV ONE ×2 (14:55→16:00)
[2022-12-28 15:34] VITALS: BP 172/104
[2022-12-28 16:50] VITALS: BP 152/86; TEMP 97.3; O2SAT 99
== END 2022-12-28 16:55 | disposition home or self-care (01) ==
LOC: M SDC 09:25
PROVIDERS: ATTEND Dentist
DX: K02.9 Dental caries, unspecified (principal); F40.232 Fear of other medical care; F17.210 Nicotine dependence, cigarettes, uncomplicated
CPT/HCPCS: 88300; C9290; D7140; D7210; D9223; J0360; J1100; J1920; J2250; J2405; J3010